=== PATIENT | female | born 1945 | race Caucasian/White ===

== ENCOUNTER → 2016-04-10 | Outpatient (CLI) | payer BC, OTHER ==
[~2016-04-10] MED LIST: ADVIN25/60 INH; ALBU18002 INH; ASPEC81 PO; BUPR100T8 PO; BUPRTAB51 PO; CALC500C70 PO; CEPH500C PO; DIPH1TAB PO; LVNIS30 SQ; NAPR1TAB9 PO; OXYC-57 PO; PRT/20 PO; WARF2TAB PO
== END | disposition home or self-care (01) ==
LOC: C.RDSM 15:38
PROVIDERS: ATTEND Physical Medicine & Rehabilitation Sports Medicine
DX: Z01.818 Encounter for other preprocedural examination (principal); M79.605 Pain in left leg

== ENCOUNTER 2016-05-13 07:30 | Inpatient (IN) | payer BC, OTHER ==
[2016-04-10 15:09] VITALS: BMI 25.0
--- NOTE | 2016-04-10 15:52 | PAT Medication Instructions ---
Service Date Apr 10, 2016. Current Home Medication List Albuterol Sulfate (Proair Respiclick), 2 PUFF INH Q4 PRN for SOB/Wheezing Aspirin Enteric Coated (Ecotrin Or Generic *), 81 MG PO HS Bupropion (Wellbutrin Sr), Unknown Dose PO QAM Calcium/Vitamin D (Os-Ricardo 500 Plus D), 1 TAB PO QAM Diphenhydramine Hcl (Benadryl Allergy), 25 MG PO HS Fluticasone Prop/Salmeterol (Advair Diskus 250/50 60 Dose), 1 PUFF INH QAM Naproxen (Aleve), 220 MG PO Q12 PRN for Pain Pantoprazole (Protonix), 20 MG PO QAM Medication Instructions For Your Scheduled Surgery - Hold the following medications 3 days prior to surgery per surgeon's instructions: Aspirin Enteric Coated (Ecotrin Or Generic *), 81 MG PO HS - Hold the following medications 5-7 days prior to surgery per surgeon's instructions: Naproxen (Aleve), 220 MG PO Q12 PRN for Pain - Hold the following medications the morning of surgery: Calcium/Vitamin D (Os-Ricardo 500 Plus D), 1 TAB PO QAM - Take the following medications the morning of surgery with a sip of water OTHERWISE NOTHING TO EAT OR DRINK AFTER MIDNIGHT: Pantoprazole (Protonix), 20 MG PO QAM Fluticasone Prop/Salmeterol (Advair Diskus 250/50 60 Dose), 1 PUFF INH QAM Bupropion (Wellbutrin Sr), Unknown Dose PO QAM Albuterol Sulfate (Proair Respiclick), 2 PUFF INH Q4 PRN for SOB/Wheezing (use if needed; BRING TO HOSPITAL) - Take the following medications as scheduled the night before surgery: Fluticasone Prop/Salmeterol (Advair Diskus 250/50 60 Dose), 1 PUFF INH QAM Diphenhydramine Hcl (Benadryl Allergy), 25 MG PO HS Albuterol Sulfate (Proair Respiclick), 2 PUFF INH Q4 PRN for SOB/Wheezing If you have any questions please call us at [phone] (Bonnie Bravo PA-C ) or [phone] or [phone]
[2016-04-10 16:27] LABS: BASO % 0.5 %; BASO ABS # 0.04 K/uL (0-0.2); COMPLETE YES; EOS % 4.7 %; IG% 0.1 %; LYMPH % 32.7 %; LYMPH ABS # 2.76 K/uL (1.2-3.4); MEAN CELL VOLUME 89.2 fL (80-100); MEAN CORPUSCULAR HEMOGLOBIN 31.1 pg (25-34); MEAN CORPUSCULAR HGB CONC 34.9 g/dl (32-36); MEAN PLATELET VOLUME 10.1 fL (7.4-10.4); MONO % 6.4 %; NEUT % 55.6 %; PLATELET COUNT 342 K/uL (130-400); RED BLOOD COUNT 4.37 M/uL (4.2-5.4); WHITE BLOOD COUNT 8.45 K/uL (4.8-10.8)
[2016-04-10 16:41] LABS: PARTIAL THROMBOPLASTIN RATIO 0.9; PROTHROMBIN TIME (PATIENT) 11.2 SECONDS (9.0-12.0)
[2016-04-10 16:48] LABS: CALCIUM 9.2 mg/dl (8.5-10.1); POTASSIUM 4.4 mmol/L (3.5-5.1)
[2016-04-10 16:50] LABS: ALB/GLOB RATIO 1.2 (0.9-2)
--- NOTE | 2016-04-11 09:26 | HISTORY & PHYSICAL EXAMINATION ---
DATE OF ADMISSION: 05/13/2016 CHIEF COMPLAINT: Bilateral knee pain, left greater than right. HISTORY OF PRESENT ILLNESS: This 70-year-old female who presents to the clinic today for preoperative history and physical examination. The patient has a longstanding history of bilateral knee pain with the left being greater than the right. The patient has failed conservative treatment with the use of steroid injections, physical therapy and viscosupplementation. The patient recently had visco in both knees and states that she has not had any alleviation of her pain at all. The patient complains of increasing pain ascending stairs, weaknesses with weightbearing and ambulation and intermittent burning in her calves. Otherwise, she denies chest pain, shortness of breath, fever, chills, sweats, nausea, vomiting, diarrhea, numbness or tingling in either lower extremity. PAST SURGICAL HISTORY: Shave biopsy of skin, mammogram, colonoscopy, cardiac ablation, section, tonsillectomy/adenoidectomy. PAST MEDICAL HISTORY: Asthma, depression, gastroesophageal reflux, varicose veins, osteopenia, supraventricular tachycardia and urinary incontinence. FAMILY HISTORY: Mother congestive heart failure and ovarian cancer. Father myocardial infarction, hypertension, hyperlipidemia. Brother myocardial infarction. ALLERGIES: THE PATIENT HAS MEDICATION ALLERGIES TO PENICILLIN (ITCHING) AND NONSTERILE ANTI-INFLAMMATORIES (STOMACH UPSET). CURRENT MEDICATIONS: Advair Diskus 250 mcg-50 mcg 1 puff twice daily as needed, albuterol CFC free 90 mcg inhaler 2 puffs 4 times daily as needed for wheezing, Aleve 220 mg tablets every 8 hours as needed, aspirin 81 mg enteric coated tablet 1 tab daily, Benadryl allergies and cold oral tablet 1 tablet at bedtime, calcium 600 plus D 1 tab twice daily, naproxen 500 mg oral tablet 1 tab every 12 hours as needed for pain, Protonix 40 mg oral delayed release tablet 1 tablet each morning and Wellbutrin-XL 150 mg extended release tablet 1 tab daily. SOCIAL HISTORY: The patient states she was a 35-40 year 1 pack per day smoker but quit smoking in 2010. She states she consumes approximately 2 alcoholic beverages per day, but denies any illicit drug use. PHYSICAL EXAMINATION: SKIN: The patient's skin is normal in appearance. No skin lesions or discharge. EYES: Pupils are equal and reactive to light and accommodation. Extraocular movements are intact. EARS: Canals clear of cerumen. Tympanic membranes are intact bilaterally with no bulging or effusion. NOSE: Turbinates pink and boggy in appearance with no appreciable rhinorrhea. THROAT: Posterior oropharynx clear without evidence of edema, erythema or exudate. CARDIOVASCULAR EXAMINATION: The patient has a regular rate and rhythm with no murmurs or gallops appreciated. LUNGS: Auscultation of lung major reveals clear breath sounds throughout with no wheezing, rales or rhonchi. ABDOMEN: Nonobese, nondistended, nontender with normoactive bowel sounds. EXTREMITIES: Left knee -- The patient is able to extend to 40 degrees and flex to 128 degrees. She has moderate crepitation with active and passive range of motion of the left knee joint. The patient experiences medial and lateral joint line tenderness upon palpation with the knee placed in a flexed position. She also has an obvious varus deformity of the left lower extremity at the knee joint. Left patella is nonmobile due to arthritic changes to the patellofemoral joint. Otherwise, there is no edema, erythema, ecchymosis, warmth or palpable deformity, no varus or valgus laxity, negative anterior drawer drawer sign, negative Leo test. The patient's left calf is soft and supple, nontender to palpation. She experienced no referred knee pain with dorsi or plantarflexion of the left foot actively or passively against resistance. The patient is neurovascularly intact in the left lower extremity. Peripheral pulses are palpable. Capillary refill is brisk. All lower extremities are normal in appearance with appropriate range of motion and strength. NEUROLOGICAL EXAMINATION: Cranial nerves II-XII are intact. No motor or sensory deficit noted. PSYCHOLOGICAL AND GENERAL EXAMINATION: The patient is alert and oriented x3. Appropriate grooming and hygiene. DIAGNOSIS: Left knee degenerative joint disease. PROCEDURE: Left total knee arthroplasty. X-RAY RESULTS: X-rays of the left knee show severe medial compartment joint space narrowing with bone on bone arthritic changes. PLAN: The patient is scheduled to undergo this procedure with Dr. Josué Rubin at [facility] on 05/06/2016. Risks and complications of surgery such as infection, bleeding, pain, scarring, nerve and blood vessel damage, weakness, wound problems, stiffness, incomplete relief of symptoms, heart attack, stroke, , hardware failure, loosening, wear, fracture, blood clots, embolism were explained to the patient. She understands and agrees. Consent to perform the procedure was obtained. We will also obtain a preoperative medical clearance from her PCP, Dr. Rivera, along with EKG, chest x-ray, CBC with diff, CMP, PT/INR, PTT, blood type and screen. The patient states she will obtain all the necessary tests prior to her preoperative anesthesia clearance examination this afternoon. The patient states she does have a walker and a cane at home that she will bring with her on the day of surgery. The patient states she has contacted her insurance company about the possibility of home care, but the relayed the information to her that states she does not qualify for home health care. She states that most likely she will do outpatient physical therapy after the procedure in our clinic; however, she was getting information about [facility] home care services and [facility] home care services and states she will contact them and her insurance company to see if these may be a possibility. The patient was advised that she will be provided with prescription for PT/OT, and INR checks for 6 weeks postoperatively upon discharge from the hospital. She will also be given a prescription for Coumadin and narcotic medication for postoperative pain control. The patient is scheduled follow-up examination with Dr. Rubin's set for 05/19/2016. The patient verbalized understanding of all information provided today and thanked us for the care she has received in our clinic and states that if she has any other questions or concerns that should arise prior to her scheduled surgical date she will contact the clinic accordingly. I attest to the content of the Intraoperative Record and any orders documented therein. Any exceptions are noted below. OLEG
[~2016-05-13] VITALS: Ht 157.5 cm; Wt 62.9 kg
[2016-05-13] VITALS (8 sets, daily range): BP systolic 109–144; BP diastolic 66–81; PULSE 80–95; TEMP 36.4–36.8; O2SAT 92–96; Ht 157.5 cm; Wt 62.9 kg
[2016-05-13] MEDS: TRANEXAMIC ACID INJ 1,000 MG in SODIUM CHLORIDE 0.9% 100ML 100 ML IV SCH ×2 (06:30→09:41)
[~2016-05-13 07:30] MED LIST changes: +ACETAMINOPHEN 500 MG TAB PO SCH; +BUPIVACAINE 0.25% 30 ML VIAL ONE; +BUPIVACAINE 0.5 % 5 MG/1 ML PF 10ML VIAL ONE; +BUPIVACAINE LIPOSOME 266 MG, BUPIVACAINE/EPINEPHRINE INJ 50 ML, SODIUM CHLORIDE 0.9% PF... INFIL SCH; -BUPRTAB51 PO; +CEFAZOLIN 1000MG/55 ML D5W 55 ML IV SCH; -CEPH500C PO; +CLONIDINE HCL 0.1 MG/24 HR TRANSDERM SYS TD SCH; +CeleBREX 200 MG CAP PO SCH; +DEXAMETHASONE 4 MG TAB PO SCH; +GABAPENTIN 300 MG CAP PO SCH; +LACTATED RINGER'S 1000ML 1,000 ML IV SCH; +LACTATED RINGER'S 1000ML 500 ML IV ONE; +LACTATED RINGER'S 1000ML IV SCH; -LVNIS30 SQ; -OXYC-57 PO; +OXYCODONE HCL 10 MG TABCR (OXYCONTIN) PO SCH; +TRAMADOL HCL 50 MG TAB PO SCH; -WARF2TAB PO
[2016-05-13] MEDS: CHECK CLONIDINE PATCH PLACEMENT SCH ×4 (08:00→23:26)
[2016-05-13] MEDS ORDERED: ATROPINE SULFATE 0.1 MG/ML 5ML SYR IV PRN (08:15)
[2016-05-13] MEDS ORDERED: EpHEDrine SULFATE INJ 50 MG/ML AMP IV PRN (08:15)
[2016-05-13] MEDS ORDERED: FENTANYL CITRATE INJ 50 MCG/1 ML 2 ML VIAL IV PRN (08:15)
[2016-05-13] MEDS ORDERED: ONDANSETRON INJ 2 MG/ML 2 ML VIAL IV PRN (08:15)
[2016-05-13] MEDS ORDERED: MIDAZOLAM HCL 1 MG/ML 2ML VIAL ONE (09:12)
[2016-05-13] MEDS ORDERED: NURSING VERBAL MED ORDER STA (09:38)
--- NOTE | 2016-05-13 09:44 | History and Physical ---
History & Physical Date May 13, 2016. Chief Complaint L KNEE PAIN History of Present Illness The patient is a 70 year old female with complaints of L KNEE PAIN Past Medical/Surgical History ASTHMA, DEPRESSION, REFLUX, VARICOSE VEINS, OSTEOPENIA, SVT, URINE INCONTINENCE Additional History Hepatic Disease: No Endocrine Disorder: No Kidney Disease: No Hypertension: No Heart Disease: No Bleeding Tendencies: No Infectious Diseases: No Other: SURGERIES, SKIN BX, MAMMOGRAM, COLONOSCOPY, CARDIAC ABLATION, C SECTION, TONSILS Allergies Coded Allergies: Penicillins (Verified Allergy, Mild, ITCHING, 05/13/16) NSAIDs (Verified Adverse Reaction, Unknown, GI UPSET WITH PROLONGED USE, ) Home Medications Scheduled Aspirin Enteric Coated (Ecotrin Or Generic *), 81 MG PO HS Bupropion (Wellbutrin Sr), Unknown Dose PO QAM Calcium/Vitamin D (Os-Ricardo 500 Plus D), 1 TAB PO QAM Diphenhydramine Hcl (Benadryl Allergy), 25 MG PO HS Fluticasone Prop/Salmeterol (Advair Diskus 250/50 60 Dose), 1 PUFF INH QAM Pantoprazole (Protonix), 20 MG PO QAM Scheduled PRN Albuterol Sulfate (Proair Respiclick), 2 PUFF INH Q4 PRN for SOB/Wheezing Naproxen (Aleve), 220 MG PO Q12 PRN for Pain Physical Examination Skin: warm/dry, no rash Eyes: normal inspection ENT: pharynx normal Head: normocephalic Neck: supple, trachea midline Respiratory/Chest: lungs clear, + pertinent finding (DISTANT) Cardiovascular: regular rate, rhythm, no murmur Abdomen / GI: normal bowel sounds, non tender Extremities: + pertinent finding (NO EDEMA, RANGE 0/5/110, NO EFFUSION, DP1+, MOTOR 5/5, DNVI, MEDEIAL JOINT TENDER) Neurologic/Psych: no motor/sensory deficits Addiitonal Comments: SOCIAL DRINKER 2/DAY, HISTORY OF SMOKIING Diagnosis L KNEE DJD ASA Classification: ASA Class II Plan of Treatment LEFT TKA, PLEASE SEE PRIOR H AND P FOR FURTHER DETAILS
[2016-05-13] MEDS ORDERED: BUPIVACAINE/EPINEPHRINE 0.25% 1:200,000 30 ML VIAL ONE (09:50)
[2016-05-13] MEDS ORDERED: BUPIVACAINE LIPOSOME 1/3% 266 MG/20 ML VIAL INFIL ONE (09:51)
[2016-05-13] MEDS ORDERED: BACITRACIN 50000 UNIT VIAL ONE (09:51)
[2016-05-13] MEDS ORDERED: SODIUM CHLORIDE 0.9% PF 50 ML VIAL ONE (09:51)
[2016-05-13] MEDS ORDERED: PROPOFOL IV EMULSION 10 MG/ML 20 ML VIAL IV ONE ×2 (10:48→11:02)
[2016-05-13] MEDS ORDERED: FENTANYL CITRATE INJ 50 MCG/1 ML 2 ML VIAL ONE (12:11)
--- NOTE | 2016-05-13 12:45 | [facility] Post Operative Brief Note ---
Immediate Operative Summary Operative Date May 13, 2016. Pre-Operative Diagnosis Left Knee Degenerative Joint Disease Post-Operative Diagnosis Left Knee Degenerative Joint Disease Procedure(s) Performed Left Total Knee Arthroplasty Surgeon Dr. Josué Rubin Library Media Assistant Surgeon(s) arlyn Sanchez, ms3 Estimated Blood Loss 25ML Findings patella and medial OA Specimens A. Left knee bone and tissue Drains 0 Anesthesia spinal with sedation and adductor block Complication(s) None Disposition Recovery Room / PACU
[2016-05-13] MEDS ORDERED: HYDROCODONE/ACETAMOPHEN 5/325MG TAB PO PRN (13:00)
[2016-05-13] MEDS ORDERED: MoRPHine SULFATE 2 MG/ML CARP IV PRN (13:00)
[2016-05-13] MEDS ORDERED: METOCLOPRAMIDE HCL INJ 5 MG/ML 2 ML VIAL IV PRN (13:00)
--- NOTE | 2016-05-13 13:08 | Medical Student: [facility] ---
Immediate Operative Summary Operative Date May 13, 2016. Pre-Operative Diagnosis Left knee osteoarthritis Post-Operative Diagnosis Left knee osteoarthritis Procedure(s) Performed Left total knee arthroplasty Surgeon Dr. Rubin Accredited Legal Secretary Surgeon(s) Dr. Bean Estimated Blood Loss 20cc Findings Degenerative joint disease of left knee, more prominent on medial aspect of knee Specimens None Complication(s) None Disposition Recovery Room / PACU
--- NOTE | 2016-05-13 13:08 | [facility] Post Operative Brief Note ---
Immediate Operative Summary Operative Date May 13, 2016. Pre-Operative Diagnosis Left Knee Degenerative Joint Disease Post-Operative Diagnosis Left Knee Degenerative Joint Disease Procedure(s) Performed Left Total Knee Arthroplasty Surgeon Dr. Josué Rubin Building Carpenter Helper Surgeon(s) arlyn Sanchez, ms3 Estimated Blood Loss 25ML Specimens A. Left knee bone and tissue Complication(s) None Disposition PCU
--- NOTE | 2016-05-13 13:47 | DIAGNOSTIC IMAGING REPORT ---
TWO VIEWS LEFT KNEE CLINICAL HISTORY: Postoperative examination. FINDINGS: AP and crosstable lateral portable views of the left knee are obtained. A left knee arthroplasty is in near anatomic alignment. There has been undersurface remodeling of the patella. No acute fracture is seen. There are expected postoperative changes around the knee including skin clips, soft tissue edema, and subcutaneous gas. IMPRESSION: Expected postoperative changes status post left knee arthroplasty. No acute fracture is seen. Electronically signed by: Benjamin Hendricks M.D. 05/13/2016 1:45 PM Dictated Date/Time: 05/13/2016 1:45 PM
--- NOTE | 2016-05-13 13:52 | Anesthesiology Progress Note ---
Anesthesia Post Op Note Date & Time May 13, 2016 at 13:52 Vital Signs Pain Intensity: 0 Vital Signs Past 12 Hours Date Time Temp Pulse Resp B/P Pulse Ox O2 Delivery O2 Flow Rate FiO2 05/13/16 13:45 95 18 114/63 97 Nasal Cannula 3 05/13/16 13:35 92 16 126/68 97 Nasal Cannula 3 05/13/16 13:25 37.0 94 16 122/68 96 Nasal Cannula 3 05/13/16 13:15 92 16 121/68 98 Nasal Cannula 3 05/13/16 13:05 91 16 126/69 98 Mask 10 05/13/16 12:56 37.2 90 16 123/69 98 Mask 10 05/13/16 08:07 36.7 87 20 124/81 95 Room Air Notes Mental Status: alert / awake / arousable, participated in evaluation Pt Amnestic to Procedure: Yes Nausea / Vomiting: adequately controlled Pain: adequately controlled Airway Patency, RR, SpO2: stable & adequate BP & HR: stable & adequate Hydration State: stable & adequate Neuraxial Anesthesia: was administered, sensory block is resolving Anesthetic Complications: no major complications apparent
--- NOTE | 2016-05-13 14:32 | OPERATIVE REPORT ---
DATE OF OPERATION: 05/13/2016 PREOPERATIVE DIAGNOSIS: Left knee osteoarthritis, medial compartment with varus deformity. POSTOPERATIVE DIAGNOSIS: Same. PROCEDURE: Cemented left total knee arthroplasty. SURGEON: Dr. Rubin. PROCESSOR GRAIN: Celso Nunn MD, fellow. No resident or PA available. ANESTHESIA: Spinal with sedation and adductor canal block. SECOND PROCESSOR GRAIN: Benjamin Encarnacion, [employer] third year medical student. BRIEF HISTORY: The patient is a 70-year-old female with severe arthritis of her left knee. She has exhausted nonsurgical methods of management without success and after discussion of appropriate treatment alternatives, risks, and benefits, has elected to proceed with operative intervention. She has had a preoperative medical evaluation. PROCEDURE IN DETAIL: Informed consent was obtained. The patient was identified as Jeana Boss. She identified the operative site as the left knee. I marked it with my initials. A preop surgical timeout was performed. A preop dose of IV antibiotics was given. She was taken to the operating room, positioned supine on the operating room table. No Faria catheter was inserted. A tourniquet was applied to the left thigh. The left leg was examined and prepped and draped in usual sterile fashion from the tourniquet to the toes. A padded bump was placed under the knee for positioning. The exam showed range 0/3/115, the varus deformity, no effusion. DVT prophylaxis intraoperatively with foot pumps, postoperatively with Coumadin and early mobility. The limb was exsanguinated with the Esmarch, tourniquet inflated to 225 mmHg. A 20 cm midline longitudinal incision was made, followed by a medial parapatellar arthrotomy. Soft tissue on the anterior aspect of the distal femur was resected along with the retropatellar fat pad. An extensile medial release was performed. The cruciates and menisci were resected, synovial reflection in the lateral gutter was released. There were grade 3 and 4 changes of the patella with marginal osteophytes which were debrided. There were bone on bone changes medial compartment with large osteophytes which were removed. The lateral compartment was relatively normal including the meniscus. The medial meniscus was deficient. The knee was subluxated. An intramedullary alignment vadim was inserted into the tibia and aligned to take a 0 degree slope, 10 mm thick cut off of the lateral side corresponding to a 2-4 mm cut medially. The extramedullary alignment vadim was utilized to confirm appropriate slope and alignment and this cut was then made and the tibia was sized to a 2.5. Marginal osteophytes were removed. A submersible pilot hole was drilled in the distal femur. The intramedullary alignment guide was inserted and set to resect 12 mm of bone, 7 degrees of valgus left knee. This was pinned into place and the cut was made, the extension gap was a symmetric 10 with full extension and neutral alignment. Whitesides line and the transepicondylar axis were marked. Distal femoral sizing block was applied and sized to a 2.5 and the appropriate external rotation drill holes were made. The block was pinned into place and the appropriate cuts were made, protecting the collateral ligaments. The flexion gap was a symmetric 10 with a millimeter of laxity lateral. The posterior compartment was inspected and posteromedial osteophytes were removed. The box cutting guide was applied and aligned lateral and the box cut was made. The size 2.5 femur was applied, followed by the 2.5 tibia. The keel was drilled and punched. A size 10 poly was inserted. The knee was stable in full extension. There was 1+ laxity laterally in mid position and the knee was stable in 90 degrees flexion. The tibial tray was aligned lateral, as was the femoral component. The patellar button was measured to be 20 mm in thickness and the guide was set to preserve 13 mm of bone. The patellar clamp was applied and the cut was made with the residual patellar thickness of 12. The 32 mm 3-peg oval dome patella was selected, medialized and distalized, appropriately aligned and the lug holes were drilled. Patellar tracking was fine with the no hands technique. The canals were plugged. Exparel was injected into the back of the knee. Pulsatile lavage was used to maintain moisture of the soft tissues throughout the procedure and the bony surfaces were meticulously prepared. Two bags of Simplex P cement were mixed. No antibiotics. While in a doughy state, the femur, tibia and patella were cemented into place and held in extension with a trial spacer and a patellar clamp until the cement had hardened. At this time, the tourniquet was let down after 90 minutes of inflation. Meticulous hemostasis was performed. There was minimal bleeding. Composite patellar thickness was 21 mm. The remainder of the Exparel was injected into the soft tissues, taking care to avoid the neurovascular structures. Back of the knee was inspected for cement and some was removed medially. Stability was again assessed and found to be satisfactory as mentioned above and the final polyethylene was inserted. The back of the knee was irrigated. The extensor mechanism was then closed with #2 FiberWire above the equator of the patella, running and interrupted #1 Vicryl below. The skin was closed in layers with 0 and 2-0 Vicryl and conor on the skin. A soft sterile dressing of Xeroform, 4 x 4's, ABD and a full length Esdras wrap. The patient was sent to the floor with a knee immobilizer. Cordova assisted flexion with the extensor mechanism closed was approximately 115 degrees. The patient was awakened from anesthesia without difficulty, taken to recovery in stable condition. There were no complications. The resected bone was sent for specimen. Counts were correct at the end of case. Blood loss was approximately 20 mL. At the conclusion of the operation, I spoke to patient's friends and informed them of my findings. Detailed postoperative instructions were given. She will be rehabilitated according to the total knee protocol and will be placed on Coumadin. Tranexamic acid was given preoperatively and another dose will be given postoperatively. Components inserted were the J\T\J PFC Sigma rotating platform knee, size 2.5 mobile bearing keeled tibial tray, a 2.5 mm posterior stabilized left femoral component, a 32 mm 3-peg oval dome patella and a size 2.5 10 mm thick rotating platform polyethylene insert. I attest to the content of the Intraoperative Record and any orders documented therein. Any exceptio ns are noted below.
[2016-05-13] MEDS: CEFAZOLIN IV 2,000 MG in DEXTROSE 5% 50ML 50 ML IV SCH (17:01)
[2016-05-13] MEDS: SODIUM CHLORIDE 0.9% 1000ML 1,000 ML IV SCH (17:04)
--- NOTE | 2016-05-13 17:08 | Medical Consult ---
Consultation Date of Consultation: May 13, 2016. Attending Physician: Josué Rubin M.D. Reason for Consultation: post-op medical management History of Present Illness Ms. Boss is a 70-yo female who is admitted for L TKA done on 05/13/16. She has a pmh of osteoarthritis, b/l rotator cuff tears, asthma (dx with PFTs outpt) , SVT in 2011 s/p successful ablation and follows with Dr. Ratliff, Depression, and h/o smoking. She c/o of left knee pain, otherwise, no chest pain, no sob, no abd pain/n/v/c/d, no urinary symptoms. Past Medical/Surgical History Pmh: rotator cuff tears b/l, b/l knee osteoarthritis s/p L TKA, asthma, SVT s/p ablation, depression, h/oruptured ovarian cyst PSh: 2 C-sections FHx: -Father: DC at 63 - Brother heart disease, DC at 44 Social History - h/o heavy smoking, quit in 2011 - daily whiskey drinker, 3 glasses daily, last drink 05/11, does not report withdrawals in the past - lives with 5 cats - twice divorce, estranged daughters Smoking Status: Former Smoker Allergies Coded Allergies: Penicillins (Verified Allergy, Mild, ITCHING, 05/13/16) NSAIDs (Verified Adverse Reaction, Unknown, GI UPSET WITH PROLONGED USE, ) Home Medications Home Meds and Scripts Medications Dose Route/Sig Max Daily Dose Days Date Category Aleve (Naproxen) 220 Mg Tab 220 Mg PO Q12 PRN 04/10/16 Reported Advair Diskus 250/50 60 Dose (Fluticasone Prop/Salmeterol) 1 Ea Aerp 1 Puff INH QAM 04/10/16 Reported Proair Respiclick (Albuterol Sulfate) 108 Mcg/Act Aer 2 Puff INH Q4 PRN 04/10/16 Reported Benadryl Allergy (Diphenhydramine Hcl) 25 Mg Tab 25 Mg PO HS 04/10/16 Reported Os-Ricardo 500 Plus D (Calcium/Vitamin D) Tab 1 Tab PO QAM 04/10/16 Reported Protonix (Pantoprazole Sodium) 20 Mg Tab 20 Mg PO QAM 04/10/16 Reported Wellbutrin Sr (Bupropion HCl) Unknown Strength Ertab Unknown Dose PO QAM 04/12/11 Reported Ecotrin Or Generic * (Aspirin) 81 Mg Ectab 81 Mg PO HS 08/22/06 Reported Current Inpatient Medications Current Inpatient Medications Medications (Trade) Dose Ordered Sig/Zina Route Start Time Stop Time Status Last Admin Dose Admin Cefazolin Sodium (Ancef 1000mg/55 ml D5W) 55 ml @ 100 mls/hr PREOP IV 05/13/16 06:00 05/13/16 18:00 05/13/16 10:16 100 MLS/HR Acetaminophen (Tylenol Tab) 1,000 mg PREOP PO 05/13/16 06:00 05/13/16 18:00 05/13/16 08:23 1,000 MG Celecoxib (CeleBREX CAP) 200 mg PREOP PO 05/13/16 06:00 05/13/16 18:00 05/13/16 08:22 200 MG Dexamethasone 8 mg 8 mg PREOP PO 05/13/16 06:00 05/13/16 18:00 05/13/16 08:22 8 MG Bupivacaine Liposome/ Bupivacaine HCl/ Epinephrine Bitart/Sodium Chloride/Syringe (Exparel/ BUPIVACAINE/ EPINEPHRINE 0.25% Inj/Sodium Chloride 0.9% Pf Inj/Syringe) 100 ml @ 0 mls/hr 06 INFIL 05/13/16 06:00 05/13/16 18:00 05/13/16 11:55 100 MLS/HR Gabapentin (Neurontin Cap) 300 mg PREOP PO 05/13/16 06:00 05/13/16 18:00 05/13/16 08:22 300 MG Oxycodone HCl (Oxycontin Tab) 10 mg PREOP PO 05/13/16 06:00 05/13/16 18:00 05/13/16 08:22 10 MG Clonidine HCl ([id number] 0.1mg/24hr Patch) 1 patch PREOP TD 05/13/16 06:00 05/13/16 18:00 05/13/16 08:29 1 PATCH Miscellaneous 1 ea 1 ea Q72H N/A 05/16/16 06:00 05/16/16 06:01 Tranexamic Acid/ Sodium Chloride (Cyklokapron Inj/ Nss 100ml) 110 ml @ 660 mls/hr TODAY@06,0630 IV 05/13/16 06:00 05/13/16 18:00 05/13/16 09:41 660 MLS/HR Tramadol HCl (Ultram Tab) 50 mg PREOP PO 05/13/16 06:00 05/13/16 18:00 05/13/16 08:22 50 MG Miscellaneous Information 1 ea 1 ea QS N/A 05/13/16 00:00 06/12/16 00:00 Sodium Chloride (Nss 1000ml) 1,000 ml @ 100 mls/hr Q10H IV 05/13/16 12:58 05/14/16 12:57 Acetaminophen/ Hydrocodone Bitart ([place] 5/325 Tab) 1 TABLET FOR PAIN RATING... Q4H PRN PO 05/13/16 13:00 05/27/16 12:59 Morphine Sulfate (MoRPHine SULFATE INJ) FOR PAIN, 1-2MG 1MG FOR P... Q4 PRN IV 05/13/16 13:00 05/27/16 12:59 Senna (Senokot Tab) 17.2 mg HS PO 05/13/16 21:00 06/12/16 20:59 Docusate Sodium (coLACE CAP) 100 mg BID PO 05/13/16 21:00 06/12/16 20:59 Ondansetron HCl (Zofran Inj) 4 mg Q6H PRN IV 05/13/16 13:00 06/12/16 12:59 Metoclopramide HCl (Reglan Inj) 10 mg Q6H PRN IV 05/13/16 13:00 06/12/16 12:59 Pantoprazole Sodium (Protonix Tab) 40 mg QAM PO 05/14/16 09:00 06/13/16 08:59 Tramadol HCl 1 tablet for pain rating... Q4H PRN PO 05/13/16 13:00 06/12/16 12:59 Tranexamic Acid/ Sodium Chloride (Cyklokapron Inj/ Nss 100ml) 110 ml @ 660 mls/hr TODAY@2000 ONCE IV 05/13/16 20:00 05/13/16 20:09 Dexamethasone 8 mg 8 mg TODAY@0730 PO 05/14/16 07:30 05/14/16 07:31 Cefazolin Sodium/ Dextrose (Ancef Iv/D5 50ml) 60 ml @ 100 mls/hr Q8H IV 05/13/16 18:00 05/14/16 02:35 Celecoxib (CeleBREX CAP) 200 mg BID PO 05/13/16 21:00 06/12/16 20:59 Review of Systems ROS as per HPI. Rest of ROS negative. Physical Exam Date Time Temp Pulse Resp B/P Pulse Ox O2 Delivery O2 Flow Rate FiO2 05/13/16 15:30 36.7 86 16 144/77 96 Nasal Cannula 2.0 05/13/16 15:08 36.5 85 16 133/80 96 Nasal Cannula 2.0 05/13/16 14:30 95 Nasal Cannula 2.0 05/13/16 14:30 36.8 95 14 142/72 95 Nasal Cannula 2.0 05/13/16 14:15 94 18 121/70 97 Nasal Cannula 3 05/13/16 14:05 36.4 95 18 120/70 97 Nasal Cannula 3 05/13/16 13:55 96 18 122/70 97 Nasal Cannula 3 05/13/16 13:45 95 18 114/63 97 Nasal Cannula 3 05/13/16 13:35 92 16 126/68 97 Nasal Cannula 3 05/13/16 13:25 37.0 94 16 122/68 96 Nasal Cannula 3 05/13/16 13:15 92 16 121/68 98 Nasal Cannula 3 05/13/16 13:05 91 16 126/69 98 Mask 10 05/13/16 12:56 37.2 90 16 123/69 98 Mask 10 05/13/16 08:07 36.7 87 20 124/81 95 Room Air NAD, AOx3 anicteric sclerae, EOMI, PERRL S1 S2 RRR, no murmurs appreciated, no carotid bruit CTAB no w/r/r abd soft, nt/nd +BS, no cva tenderness, no organomegaly palpated, no suprapubic tend no LE edema, L toe cap refill <2 sec cn2-12 grossly intact without facial drooping and no focal deficits Assessment & Plan 1. L knee DJD - POD #0 s/p L TKA - pain control - bowel regimen - celecoxib as ordered - counselled on naproxen use at home. pt verbalized understanding 2. Depression - cont wellbutrin 350mg daily 3. SVT - s/p ablation - no further episodes since 2012 4. Ashma - stable 5. Alcohol use - no e/o withdrawal symptoms - will monitor for s/s dvt ppx: will defer to ortho post-op. gi ppx with ppi
[2016-05-13] MEDS ORDERED: ALBUTEROL HFA 8 GM INHALER INH PRN (17:45)
[2016-05-13] MEDS ORDERED: ACETAMINOPHEN 500 MG TAB PO PRN (18:00)
[2016-05-13] MEDS: ONDANSETRON INJ 2 MG/ML 2 ML VIAL IV PRN (18:16)
[2016-05-13] MEDS ORDERED: BUPRTAB51 PO (19:01)
[2016-05-13] MEDS ORDERED: WARFARIN SOD 5 MG TAB PO ONE (19:30)
[2016-05-13] MEDS ORDERED: TRANEXAMIC ACID INJ 1,000 MG in SODIUM CHLORIDE 0.9% 100ML 100 ML IV ONE (20:00)
[2016-05-13] MEDS: DOCUSATE SODIUM 100 MG CAP PO SCH (20:14)
[2016-05-13] MEDS: CeleBREX 200 MG CAP PO SCH (20:14)
[2016-05-13] MEDS: SENNA 8.6 MG TAB PO SCH (20:15)
[2016-05-13] MEDS: ASPIRIN 81 MG ECTAB PO SCH (20:15)
[2016-05-13] MEDS ORDERED: BuPROPion SR 150 MG TABCR PO SCH (21:00)
--- NOTE | 2016-05-13 22:11 | PROGRESS NOTE ---
DATE: 05/13/2016 SUBJECTIVE: She is resting comfortably in bed. Pain is well controlled. No problems reported. She is afebrile. Her vital signs are stable. She has a 1+ dorsalis pedis pulse with normal sensation. She can flex and extend her ankle and toes with normal strength. Her dressing is clean and dry. IMPRESSION: Left knee replacement. PLAN: She is doing very well. Continue routine postop orthopedic care, anticoagulation with Coumadin starting tonight, routine postoperative antibiotics, pain medication regimen discussed. DATA: X-rays of the left knee, AP and lateral views obtained and reviewed today, postoperatively show no evidence of complication or fracture. There is good positioning of the implants. No dislocation or fracture.
[2016-05-14] MEDS: SODIUM CHLORIDE 0.9% 1000ML 1,000 ML IV SCH ×2 (00:10→09:08)
[2016-05-14] MEDS: CEFAZOLIN IV 2,000 MG in DEXTROSE 5% 50ML 50 ML IV SCH (01:40)
[2016-05-14] MEDS: TRAMADOL HCL 50 MG TAB PO PRN ×4 (01:45→22:08)
[2016-05-14 03:33] VITALS: BP 99/61; PULSE 69; TEMP 36.5; O2SAT 94
[2016-05-14 05:55] LABS: BASO % 0.1 %; BASO ABS # 0.01 K/uL (0-0.2); COMPLETE YES; EOS % 0.3 %; HEMATOCRIT 32.8 % (37-47); IG% 0.2 %; LYMPH % 16.2 %; MEAN CELL VOLUME 90.9 fL (80-100); MEAN CORPUSCULAR HEMOGLOBIN 30.5 pg (25-34); MEAN CORPUSCULAR HGB CONC 33.5 g/dl (32-36); MEAN PLATELET VOLUME 9.9 fL (7.4-10.4); MONO % 7.4 %; NEUT % 75.8 %; PLATELET COUNT 271 K/uL (130-400); RED BLOOD COUNT 3.61 M/uL (4.2-5.4); WHITE BLOOD COUNT 11.76 K/uL (4.8-10.8)
[2016-05-14 06:41] LABS: ALB/GLOB RATIO 0.9 (0.9-2); BUN/CREATININE RATIO 17.7 (10-20); CALCIUM 8.3 mg/dl (8.5-10.1); CREATININE 0.75 mg/dl (0.60-1.20); POTASSIUM 3.6 mmol/L (3.5-5.1)
[2016-05-14 07:10] VITALS: BP 96/61; PULSE 71; TEMP 36.5; O2SAT 93
[2016-05-14] MEDS ORDERED: DEXAMETHASONE 4 MG TAB PO SCH (07:30)
[2016-05-14] MEDS: ONDANSETRON INJ 2 MG/ML 2 ML VIAL IV PRN (07:35)
[2016-05-14] MEDS: CHECK CLONIDINE PATCH PLACEMENT SCH ×2 (08:00→14:41)
--- NOTE | 2016-05-14 08:54 | Progress Note ---
Orthopedic SOAP Note Subjective Date of Service: May 14, 2016. Post OP Day: 1 Reports: feeling well, Denies: SOB, calf pain, chest pain, complaints, light headedness, nausea / vomiting, pain controlled w PO medications, using DOOR FITTER Objective calves soft nontender, capillary refill less than 2 sec., dressing C/D/I, A&O x3 , toes mobile knee immobilizer in place sitting bedside eating breakfast Date Time Temp Pulse Resp B/P Pulse Ox O2 Delivery O2 Flow Rate FiO2 05/14/16 07:49 Room Air 05/14/16 07:10 36.5 71 16 96/61 93 Room Air 05/14/16 03:33 36.5 69 17 99/61 94 Room Air 05/13/16 23:25 Room Air 05/13/16 22:48 36.4 80 18 109/72 94 Room Air 05/13/16 18:48 36.6 88 18 109/68 92 Room Air 05/13/16 17:42 36.4 85 18 114/71 93 Room Air 05/13/16 16:55 Nasal Cannula 2.0 05/13/16 16:38 36.8 92 18 124/66 96 Nasal Cannula 2.0 05/13/16 15:30 36.7 86 16 144/77 96 Nasal Cannula 2.0 05/13/16 15:08 36.5 85 16 133/80 96 Nasal Cannula 2.0 05/13/16 14:30 95 Nasal Cannula 2.0 05/13/16 14:30 36.8 95 14 142/72 95 Nasal Cannula 2.0 05/13/16 14:15 94 18 121/70 97 Nasal Cannula 3 05/13/16 14:05 36.4 95 18 120/70 97 Nasal Cannula 3 05/13/16 13:55 96 18 122/70 97 Nasal Cannula 3 05/13/16 13:45 95 18 114/63 97 Nasal Cannula 3 05/13/16 13:35 92 16 126/68 97 Nasal Cannula 3 05/13/16 13:25 37.0 94 16 122/68 96 Nasal Cannula 3 05/13/16 13:15 92 16 121/68 98 Nasal Cannula 3 05/13/16 13:05 91 16 126/69 98 Mask 10 05/13/16 12:56 37.2 90 16 123/69 98 Mask 10 Laboratory Results 24 Hours: Test 05/14/16 04:44 05/14/16 05:20 White Blood Count 11.76 K/uL Red Blood Count 3.61 M/uL Hemoglobin 11.0 g/dL Hematocrit 32.8 % Mean Corpuscular Volume 90.9 fL Mean Corpuscular Hemoglobin 30.5 pg Mean Corpuscular Hemoglobin Concent 33.5 g/dl Platelet Count 271 K/uL Mean Platelet Volume 9.9 fL Neutrophils (%) (Auto) 75.8 % Lymphocytes (%) (Auto) 16.2 % Monocytes (%) (Auto) 7.4 % Eosinophils (%) (Auto) 0.3 % Basophils (%) (Auto) 0.1 % Neutrophils # (Auto) 8.92 K/uL Lymphocytes # (Auto) 1.90 K/uL Monocytes # (Auto) 0.87 K/uL Eosinophils # (Auto) 0.04 K/uL Basophils # (Auto) 0.01 K/uL Assessment post op day 1 s/p Left TKA Plan continue post op care pain control with prescribed medications DVT prophylaxis with Coumadin x 6 weeks with target INR 2.0-3.0 WBAT left L.E. with walker PT/OT daily Will change dressing tomorrow AM Ice/elevate Resume diet Requesting DC home tomorrow with home PT Will discuss findings further with Dr. Rubin
[2016-05-14] MEDS ORDERED: LVNIS30 SQ ×2 (09:00→09:27)
[2016-05-14] MEDS ORDERED: BuPROPion XL 300 MG TABCR PO SCH (09:00)
[2016-05-14] MEDS ORDERED: OXYC-57 PO (09:00)
[2016-05-14] MEDS ORDERED: WARF2TAB PO (09:00)
[2016-05-14] MEDS: PANTOprazole SOD 40 MG TAB PO SCH (09:00)
[2016-05-14] MEDS: CeleBREX 200 MG CAP PO SCH ×2 (09:01→22:07)
[2016-05-14] MEDS: DOCUSATE SODIUM 100 MG CAP PO SCH ×2 (09:01→22:07)
--- NOTE | 2016-05-14 09:03 | Discharge Instructions ---
Discharge Instructions Admission Reason for Admission: Left Knee Degenerative Joint Disease Discharge Discharge Diagnosis / Problem: s/p Left total knee arthroplasty Discharge Goals Goal(s): Decrease discomfort, Improve function, Increase independence Activity Recommendations Activity Limitations: as noted below Lifting Limitations: none Exercise/Sports Limitations: none May Resume Sexual Activity: after follow-up appointment Shower/Bathe: keep incision dry Driving or Machine Use: until cleared by Dr. Rubin Weightbearing Status: Left weightbearing (as tolerated) . Instructions / Follow-Up Instructions / Follow-Up New Medicine: * You will likely be taking one or more of these medications: 1. Lovenox - You will be on Lovenox injections x 4 weeks after surgery to prevent blood clots 2. Oxycontin - Take one every 12 hours. 3. Percocet - Take, as directed, when you need it, every four to six hours to control your pain. 4. Colace & Senokot - Take to prevent constipation which can be caused by narcotics. These can be bought [id number] at the pharmacy * The most common side effects of pain medicine and iron are nausea and constipation. If nausea or constipation is too much of a problem or if you have any questions about your new medicines or doses, call [facility] at . We will try to help you manage these issues. VERY IMPORTANT TO READ AND REVIEW" Physical Therapy: * Do your physical therapy at home. These are the exercises you learned while in the hospital (quad sets, leg raises, calf pumps, gluteal squeezes, knee bending, and heel props.) You should do these exercises 3-4 times per day. * You will either go to inpatient rehab ([facility]), home with Home Therapy and nursing or home with outpatient rehab. You should do rehab with the therapist 2-3 times per week. You should do therapy on your own daily. * You may bear full weight on your leg with crutches or walker unless otherwise advised. Home Exercise: * You were shown a series of exercises (heel props, heel slides, etc.) in the hospital. Do these exercises three to four times each day including the exercises you were shown in physical therapy. Walking: * You may be up for short periods of time. Standing and walking for 1-2 hours at a time is usually okay. You should not stand or walk for excessive periods of time as this may cause increased pain and swelling. SELF CARE INSTRUCTIONS AFTER TOTAL KNEE REPLACEMENT A. You may need to continue a physical therapy program after discharge from the hospital. There are several options available to you. Your doctor will assist you in selecting the best one for you. 1. An out-patient facility 2 to 3 times a week for therapy or home therapy. 2. Continue working on all exercises taught to you in the hospital. Your goals should be to increase bending of your knee to 90 degrees and beyond and to fully straighten your knee. B. Your therapist will notify you when you are able to progress from a walker to a cane. C. Wear TEDS as much as possible.~ They may be removed at night for laundering. D. Do not place a pillow behind your knee when resting. A pillow at your ankle is okay. E. Ice your knee 15-20 minutes every 2-3 hours and elevate it above the level of your heart. F. You may shower on the fourth day after surgery using regular soap and water. Do not submerge until the wound is completely healed (approximately 2 weeks ). Until the fourth day after surgery, cover the incision/bandage with a bag or plastic wrap. G. Anyone who is touching your surgical incision area should wash their hands and wear gloves. H. Keep your incision covered with gauze pads under the RAFAELA hose until it is dry. VERY IMPORTANT TO READ AND REVIEW B. There are a few signs you need to watch for after you are home. Call [facility] if you notice any of the followin. Increased severe knee pain. Some pain is expected especially when you exercise. 2. Increased swelling in your leg or knee; pain or swelling of the calf muscle in either lower leg. 3. Any fluid drainage from the incision. 4. Shortness of breath or chest pain. 5. Numbness and tingling in the surgical extremity C. Please call [facility] at if you have any concerns or questions about your operation or recovery. The doctor or his nurse will return your call promptly. D. Do not have any elective dental work or other elective procedures done for 6 weeks after your knee replacement. When you have any invasive procedure (dental cleaning, extraction, colonoscopy etc) performed, you will need to take antibiotics to prevent infection from developing in your artificial joint. Tell your other health care providers you have an artificial joint. My office will supply you with further information and the antibiotics. Call your doctor if: * Temperature above 101 degrees F. * Pain not relieved by pain medicine ordered. * Increased drainage or redness from incision. * Notify your doctor with any questions or concerns. Follow-up Visit: You will follow-up with Dr. Rubin 10-14 days after surgery. The office number is . Avoid all tobacco products. If you need help to stop smoking, call [place] at . This is a free call. Current Hospital Diet Patient's current hospital diet: Regular Diet Discharge Diet Recommended Diet: Regular Diet Procedures Procedures Performed: Left Total Knee Arthroplasty Pending Studies Studies pending at discharge: no Medical Emergencies . Who to Call and When: Medical Emergencies: If at any time you feel your situation is an emergency, please call 911 immediately. . Non-Emergent Contact Non-Emergency issues call your: Primary Care Provider . "Provider Documentation" section prepared by Pedrito Bucio. VTE Core Measure Inpt VTE Proph given/why not?: Warfarin (Coumadin), Carmel Good, SCD's
[2016-05-14] MEDS: FLUTICASONE/SALMETEROL 250/50 (ADVAIR) 14 PUFF/1 INHALER INH SCH (09:08)
[2016-05-14 09:11] LABS: PROTHROMBIN TIME (PATIENT) 11.1 SECONDS (9.0-12.0)
--- NOTE | 2016-05-14 10:59 | PROGRESS NOTE ---
DATE: 05/14/2016 She is seen and examined with Pedrito Bucio. He and I have discussed the results of the examination, I am in agreement. I did examine and talk with Leti. Her strength is normal. Her neurovascular function is normal. She has a 1+ dorsalis pedis pulse. Her output is okay and her vitals and labs are noted. We did discuss use of anticoagulants and it appears that Coumadin may be problematic due to the need for home blood draws. We discussed with her the option for using Lovenox and she was in agreement and will stop the Coumadin and place her on Lovenox 30 mg subQ b.i.d. beginning now and continuing for 4 weeks after surgery.
[2016-05-14 11:01] VITALS: BP 125/73; PULSE 70; TEMP 36.5; O2SAT 93
[2016-05-14] MEDS: ENOXAPARIN 30 MG/0.3 ML SYR SQ SCH ×2 (11:21→22:11)
[2016-05-14 14:41] VITALS: BP 118/69; PULSE 68; TEMP 36.5; O2SAT 93
--- NOTE | 2016-05-14 16:02 | Progress Note ---
Subjective Date of Service: May 14, 2016. Subjective Pt evaluation today including: conversation w/ patient, physical exam, lab review, review of inpatient medication list She is afebrile. L knee pain tolerable. She confirms that her Wellbutrin XL dose is 150mg daily. No new complaints Review of Systems All Other Systems: Reviewed and Negative Medications Acetaminophen (Tylenol Tab) 1,000 mg Q8 PRN PO; Start 05/13/16 at 18:00; Stop 06/12/16 at 17:59 Albuterol (Ventolin Hfa Inhaler) 2 puffs Q4 PRN INH; Start 05/13/16 at 17:45; Stop 06/12/16 at 17:44 Aspirin (Ecotrin Tab) 81 mg HS PO Last administered on 05/13/16 20:15; Admin Dose 81 MG; Start 05/13/16 at 21:00; Stop 06/12/16 at 20:59 Bupropion HCl (Wellbutrin-Xl Tab) 150 mg QAM PO; Start 05/15/16 at 09:00; Stop 06/14/16 at 08:59 Celecoxib (CeleBREX CAP) 200 mg BID PO Last administered on 05/14/16 09:01; Admin Dose 200 MG; Start 05/13/16 at 21:00; Stop 06/12/16 at 20:59 Docusate Sodium (coLACE CAP) 100 mg BID PO Last administered on 05/14/16 09:01 ; Admin Dose 100 MG; Start 05/13/16 at 21:00; Stop 06/12/16 at 20:59 Enoxaparin Sodium (Lovenox Inj) 30 mg Q12H SQ Last administered on 05/14/16 11: 21; Admin Dose 30 MG; Start 05/14/16 at 10:00; Stop 06/13/16 at 09:59 Metoclopramide HCl (Reglan Inj) 10 mg Q6H PRN IV Last administered on 11:19; Admin Dose 10 MG; Start 05/13/16 at 13:00; Stop 06/12/16 at 12:59 Miscellaneous (Remove Clonidine Patch) 1 ea Q72H N/A; Start 05/16/16 at 06:00; Stop 05/16/16 at 06:01 Miscellaneous Information (Check Clonidine Patch Placement) 1 ea QS N/A Last administered on 05/14/16 14:41; Admin Dose 1 EA; Start 05/13/16 at 00:00; Stop 06/12/16 at 00:00 Morphine Sulfate (MoRPHine SULFATE INJ) FOR PAIN, 1-2MG 1MG FOR P... Q4 PRN IV ; Start 05/13/16 at 13:00; Stop 05/27/16 at 12:59 Ondansetron HCl (Zofran Inj) 4 mg Q6H PRN IV Last administered on 05/14/16 07: 35; Admin Dose 4 MG; Start 05/13/16 at 13:00; Stop 06/12/16 at 12:59 Oxycodone HCl (Roxicodone Immediate Rel Tab) `1-2 tabs for pain 1 tab ... Q4 PRN PO Last administered on 05/14/16 17:38; Admin Dose 5 MG; Start 05/13/16 at 18:00; Stop 05/27/16 at 17:59 Pantoprazole Sodium (Protonix Tab) 40 mg QAM PO Last administered on 05/14/16 09:00; Admin Dose 40 MG; Start 05/14/16 at 09:00; Stop 06/13/16 at 08:59 Salmeterol Xinafoate/ Fluticasone (Advair Diskus 250/50 Inh) 1 puff QAM INH Last administered on 05/14/16 09:08; Admin Dose 1 PUFF; Start 05/14/16 at 09:00 ; Stop 06/13/16 at 08:59 Senna (Senokot Tab) 17.2 mg HS PO Last administered on 05/13/16 20:15; Admin Dose 17.2 MG; Start 05/13/16 at 21:00; Stop 06/12/16 at 20:59 Tramadol HCl (Ultram Tab) 1 tablet for pain rating... Q4H PRN PO Last administered on 05/14/16 13:08; Admin Dose 100 MG; Start 05/13/16 at 13:00; Stop 06/12/16 at 12:59 Objective Vital Signs Date Time Temp Pulse Resp B/P Pulse Ox O2 Delivery O2 Flow Rate FiO2 05/14/16 14:41 36.5 68 16 118/69 93 Room Air 05/14/16 11:01 36.5 70 16 125/73 93 Room Air 05/14/16 07:49 Room Air 05/14/16 07:10 36.5 71 16 96/61 93 Room Air 05/14/16 03:33 36.5 69 17 99/61 94 Room Air 05/13/16 23:25 Room Air 05/13/16 22:48 36.4 80 18 109/72 94 Room Air 05/13/16 18:48 36.6 88 18 109/68 92 Room Air 05/13/16 17:42 36.4 85 18 114/71 93 Room Air 05/13/16 16:55 Nasal Cannula 2.0 05/13/16 16:38 36.8 92 18 124/66 96 Nasal Cannula 2.0 Physical Exam Comments: nad, aox3 eomi, perrl, anicteric s1 s2 rrr, no murmurs appreciated ctab no w/r/r abd soft, nt/nd +BS no LE edema Laboratory Results Last 24 Hours Test 05/14/16 05:20 05/14/16 08:40 White Blood Count 11.76 K/uL Red Blood Count 3.61 M/uL Hemoglobin 11.0 g/dL Hematocrit 32.8 % Mean Corpuscular Volume 90.9 fL Mean Corpuscular Hemoglobin 30.5 pg Mean Corpuscular Hemoglobin Concent 33.5 g/dl Platelet Count 271 K/uL Mean Platelet Volume 9.9 fL Neutrophils (%) (Auto) 75.8 % Lymphocytes (%) (Auto) 16.2 % Monocytes (%) (Auto) 7.4 % Eosinophils (%) (Auto) 0.3 % Basophils (%) (Auto) 0.1 % Neutrophils # (Auto) 8.92 K/uL Lymphocytes # (Auto) 1.90 K/uL Monocytes # (Auto) 0.87 K/uL Eosinophils # (Auto) 0.04 K/uL Basophils # (Auto) 0.01 K/uL RDW Standard Deviation 45.3 fL RDW Coefficient of Variation 13.7 % Immature Granulocyte % (Auto) 0.2 % Immature Granulocyte # (Auto) 0.02 K/uL Sodium Level 141 mmol/L Potassium Level 3.6 mmol/L Chloride Level 106 mmol/L Carbon Dioxide Level 25 mmol/L Anion Gap 10.0 mmol/L Blood Urea Nitrogen 13 mg/dl Creatinine 0.75 mg/dl Est Creatinine Clear Calc Drug Dose 59.1 ml/min Estimated GFR () 92.3 Estimated GFR (Non- 79.6 BUN/Creatinine Ratio 17.7 Random Glucose 134 mg/dl Calcium Level 8.3 mg/dl Total Bilirubin 0.4 mg/dl Aspartate Amino Transf (AST/SGOT) 16 U/L Alanine Aminotransferase (ALT/SGPT) 23 U/L Alkaline Phosphatase 60 U/L Total Protein 5.8 gm/dl Albumin 2.8 gm/dl Globulin 3.0 gm/dl Albumin/Globulin Ratio 0.9 Prothrombin Time 11.1 SECONDS Prothromb Time International Ratio 1.0 Assessment and Plan 1. L knee DJD - POD #1 s/p L TKA - pain control - bowel regimen - celecoxib as ordered - counselled on naproxen use at home. pt verbalized understanding 2. Depression - cont wellbutrin 350mg daily 3. SVT - s/p ablation - no further episodes since 2011 4. Ashma - stable 5. Alcohol use - no e/o withdrawal symptoms - will monitor for s/s 6. Leukocytosis - afebrile - received 2 doses of Cefazolin katharine-op - will monitor dvt ppx: will defer to ortho post-op. gi ppx with ppi
[2016-05-14] MEDS: OXYCODONE HCL IR 5 MG TAB (IMMEDIATE RELEASE) PO PRN (17:38)
[2016-05-14] MEDS: ASPIRIN 81 MG ECTAB PO SCH (22:07)
[2016-05-14] MEDS: SENNA 8.6 MG TAB PO SCH (22:07)
[2016-05-14 22:50] VITALS: BP 110/62; PULSE 76; TEMP 36.7; O2SAT 92
[2016-05-15] MEDS: CHECK CLONIDINE PATCH PLACEMENT SCH ×2 (00:03→07:20)
[2016-05-15 07:02] VITALS: BP 106/63; PULSE 71; TEMP 36.9; O2SAT 93
[2016-05-15 07:09] LABS: BASO % 0.1 %; BASO ABS # 0.01 K/uL (0-0.2); COMPLETE YES; EOS % 0.5 %; HEMATOCRIT 31.5 % (37-47); IG% 0.3 %; LYMPH % 16.8 %; LYMPH ABS # 1.67 K/uL (1.2-3.4); MEAN CELL VOLUME 90.5 fL (80-100); MEAN CORPUSCULAR HEMOGLOBIN 30.5 pg (25-34); MEAN CORPUSCULAR HGB CONC 33.7 g/dl (32-36); MEAN PLATELET VOLUME 10.1 fL (7.4-10.4); MONO % 9.6 %; NEUT % 72.7 %; PLATELET COUNT 270 K/uL (130-400); RED BLOOD COUNT 3.48 M/uL (4.2-5.4); WHITE BLOOD COUNT 9.95 K/uL (4.8-10.8)
--- NOTE | 2016-05-15 08:44 | Progress Note ---
Orthopedic SOAP Note Subjective Date of Service: May 15, 2016. Post OP Day: 2 Reports: feeling well, pain controlled w PO medications, Denies: SOB, calf pain , chest pain, complaints, light headedness, nausea / vomiting, using MALT ROASTER Objective calves soft nontender, N/V intact, capillary refill less than 2 sec., dressing C /D/I, incision C/D/I, A&O x3, toes mobile Date Time Temp Pulse Resp B/P Pulse Ox O2 Delivery O2 Flow Rate FiO2 05/15/16 07:02 36.9 71 16 106/63 93 Room Air 05/15/16 07:00 Room Air 05/14/16 23:50 Room Air 05/14/16 22:50 36.7 76 18 110/62 92 Room Air 05/14/16 19:25 Room Air 05/14/16 14:41 36.5 68 16 118/69 93 Room Air 05/14/16 11:01 36.5 70 16 125/73 93 Room Air Laboratory Results 24 Hours: Test 05/15/16 06:39 White Blood Count 9.95 K/uL Red Blood Count 3.48 M/uL Hemoglobin 10.6 g/dL Hematocrit 31.5 % Mean Corpuscular Volume 90.5 fL Mean Corpuscular Hemoglobin 30.5 pg Mean Corpuscular Hemoglobin Concent 33.7 g/dl Platelet Count 270 K/uL Mean Platelet Volume 10.1 fL Neutrophils (%) (Auto) 72.7 % Lymphocytes (%) (Auto) 16.8 % Monocytes (%) (Auto) 9.6 % Eosinophils (%) (Auto) 0.5 % Basophils (%) (Auto) 0.1 % Neutrophils # (Auto) 7.23 K/uL Lymphocytes # (Auto) 1.67 K/uL Monocytes # (Auto) 0.96 K/uL Eosinophils # (Auto) 0.05 K/uL Basophils # (Auto) 0.01 K/uL Assessment post op day 2 s/p Left TKA Plan continue post op care pain control with prescribed medications DVT prophylaxis with Lovenox x 4 weeks WBAT left L.E. with walker PT/OT daily Dressing changed, incision looks great Ice/elevate Resume diet Discharge home today after lunch Will discuss findings further with Dr. Rubin
[2016-05-15] MEDS: CeleBREX 200 MG CAP PO SCH (09:00)
[2016-05-15] MEDS ORDERED: BuPROPion XL 150 MG TABCR PO SCH (09:00)
[2016-05-15] MEDS ORDERED: THIAMINE HCL 100 MG TAB PO SCH (09:00)
[2016-05-15] MEDS: DOCUSATE SODIUM 100 MG CAP PO SCH (09:00)
--- NOTE | 2016-05-15 09:23 | DISCHARGE SUMMARY ---
DATE OF DISCHARGE: 05/15/2016. ATTENDING PHYSICIAN: Dr. Rubin. DIAGNOSIS: Left knee degenerative joint disease. DISCHARGE DIAGNOSIS: Status post left total knee arthroplasty. PERTINENT DISCHARGE MEDICATIONS: Include: 1. Lovenox 30 mg q. 12 hours x30 days for DVT prophylaxis. 2. Percocet 5/325 mg tabs 1-2 every 4-6 hours as needed for pain. ALLERGIES: INCLUDE NONSTEROIDAL ANTI-INFLAMMATORY DRUGS AND PENICILLIN. HOSPITAL COURSE: The patient is a 70-year-old female patient of Dr. Rubin's from [facility] that underwent a left total knee arthroplasty on 05/13/[address] Rubin at the [facility]. She tolerated the procedure very well. Her activity level progressed daily. Pain was controlled with prescribed medications and she was able to be discharged home with home health physical therapy on 05/13/2016. VITAL SIGNS UPON DISCHARGE: Reveal a temperature of 36.9, pulse 71, respiratory rate of 16, blood pressure 106/63 and pulse ox of 93% on room air. LABORATORY VALUES: On 05/15/2016 revealed white count of 9.9, hemoglobin is 10.6, hematocrit 31.5 and platelet count of 270. DISCHARGE INSTRUCTIONS: 1. Discharge home today on 05/15/2016 with home health physical therapy. 2. Deep venous thrombosis prophylaxis with Lovenox and pain control with Percocet. 3. Weightbear as tolerated left lower extremity with walker assist. 4. Continue to ice and elevate accordingly. 5. Do not submerge in bath until conor removed [address] Rubin [facility]. 6. Resume previous diet. 7. Any other questions, notify [facility] at [phone].
[2016-05-15] MEDS: FLUTICASONE/SALMETEROL 250/50 (ADVAIR) 14 PUFF/1 INHALER INH SCH (09:42)
[2016-05-15] MEDS: PANTOprazole SOD 40 MG TAB PO SCH (09:44)
[2016-05-15] MEDS: OXYCODONE HCL IR 5 MG TAB (IMMEDIATE RELEASE) PO PRN ×2 (09:45→15:33)
[2016-05-15] MEDS: ENOXAPARIN 30 MG/0.3 ML SYR SQ SCH (09:46)
[2016-05-15 10:31] VITALS: BP 106/63; PULSE 71; TEMP 36.9; O2SAT 93
--- NOTE | 2016-05-15 18:06 | Progress Note ---
Subjective Date of Service: May 15, 2016. Subjective Pt evaluation today including: conversation w/ patient Pt is awaiting d/c later today. Eating well. Doing well post-op. Pt denies fever, SOB, chest pain, abd pain, n/v/c/d, LE pain or swelling. ROS as noted above, otherwise neg. Objective Vital Signs Date Time Temp Pulse Resp B/P Pulse Ox O2 Delivery O2 Flow Rate FiO2 05/15/16 10:31 36.9 71 16 93 Room Air 05/15/16 07:02 36.9 71 16 106/63 93 Room Air 05/15/16 07:00 Room Air 05/14/16 23:50 Room Air 05/14/16 22:50 36.7 76 18 110/62 92 Room Air 05/14/16 19:25 Room Air Physical Exam General Appearance: WD/WN, no apparent distress Respiratory/Chest: no respiratory distress Cardiovascular: no edema Extremities: no pedal edema Neurologic/Psychiatric: alert, normal mood/affect Skin: normal color, warm/dry Laboratory Results Last 24 Hours Test 05/15/16 06:39 White Blood Count 9.95 K/uL Red Blood Count 3.48 M/uL Hemoglobin 10.6 g/dL Hematocrit 31.5 % Mean Corpuscular Volume 90.5 fL Mean Corpuscular Hemoglobin 30.5 pg Mean Corpuscular Hemoglobin Concent 33.7 g/dl Platelet Count 270 K/uL Mean Platelet Volume 10.1 fL Neutrophils (%) (Auto) 72.7 % Lymphocytes (%) (Auto) 16.8 % Monocytes (%) (Auto) 9.6 % Eosinophils (%) (Auto) 0.5 % Basophils (%) (Auto) 0.1 % Neutrophils # (Auto) 7.23 K/uL Lymphocytes # (Auto) 1.67 K/uL Monocytes # (Auto) 0.96 K/uL Eosinophils # (Auto) 0.05 K/uL Basophils # (Auto) 0.01 K/uL RDW Standard Deviation 45.9 fL RDW Coefficient of Variation 13.9 % Immature Granulocyte % (Auto) 0.3 % Immature Granulocyte # (Auto) 0.03 K/uL
== END 2016-05-15 16:40 | disposition home or self-care (01) | DRG 470 ==
LOC: ENRESERVTM → ENRESERVDT → C.ACU 07:30 → C.3E 09:30
PROVIDERS: ADMIT Physical Medicine & Rehabilitation Sports Medicine; ATTEND Physical Medicine & Rehabilitation Sports Medicine
PROC: 0SRD0J9 Replacement of Left Knee Joint with Synthetic Substitute, Cemented, Open Approach (ICD-10-PCS; principal; 2016-05-13 10:00)
DX: M17.12 Unilateral primary osteoarthritis, left knee (principal); M21.162 Varus deformity, not elsewhere classified, left knee; D72.829 Elevated white blood cell count, unspecified; J45.909 Unspecified asthma, uncomplicated; K21.9 Gastro-esophageal reflux disease without esophagitis; R32 Unspecified urinary incontinence; F32.9 Major depressive disorder, single episode, unspecified; F41.9 Anxiety disorder, unspecified; Z87.891 Personal history of nicotine dependence; Z79.82 Long term (current) use of aspirin; Z79.51 Long term (current) use of inhaled steroids; Z79.899 Other long term (current) drug therapy; Z72.89 Other problems related to lifestyle

== ENCOUNTER → 2016-08-18 | Outpatient (CLI) | payer BC ==
[~2016-08-18] MED LIST changes: +ACET-1047 PO; -ACETAMINOPHEN 500 MG TAB PO SCH; +ASPI81TA28 PO; -BUPIVACAINE 0.25% 30 ML VIAL ONE; -BUPIVACAINE 0.5 % 5 MG/1 ML PF 10ML VIAL ONE; -BUPIVACAINE LIPOSOME 266 MG, BUPIVACAINE/EPINEPHRINE INJ 50 ML, SODIUM CHLORIDE 0.9% PF... INFIL SCH; -BUPR100T8 PO; +BUPRTAB51 PO; -CEFAZOLIN 1000MG/55 ML D5W 55 ML IV SCH; +CLC100 PO; -CLONIDINE HCL 0.1 MG/24 HR TRANSDERM SYS TD SCH; -CeleBREX 200 MG CAP PO SCH; -DEXAMETHASONE 4 MG TAB PO SCH; -DIPH1TAB PO; +DIPH1TAB87 PO; -GABAPENTIN 300 MG CAP PO SCH; -LACTATED RINGER'S 1000ML 1,000 ML IV SCH; -LACTATED RINGER'S 1000ML 500 ML IV ONE; -LACTATED RINGER'S 1000ML IV SCH; +LVNIS30 SQ; +MULT-890 PO; +ONDA4TAB10 SL; +OXYC-57 PO; -OXYCODONE HCL 10 MG TABCR (OXYCONTIN) PO SCH; -TRAMADOL HCL 50 MG TAB PO SCH; +ULT50X PO
== END | disposition home or self-care (01) ==
LOC: C.MAMM 14:09
PROVIDERS: ATTEND Obstetrics & Gynecology
DX: M85.851 Other specified disorders of bone density and structure, right thigh (principal); M85.852 Other specified disorders of bone density and structure, left thigh

== ENCOUNTER → 2016-08-18 | Outpatient (CLI) | payer BC ==
--- NOTE | 2016-08-19 07:55 | MAMMOGRAPHY REPORT ---
BILATERAL DIGITAL SCREENING MAMMOGRAM WITH CAD: 08/18/2016 CLINICAL HISTORY: Routine screening. Patient has no complaints. TECHNIQUE: Bilateral CC and MLO views were obtained. Current study was also evaluated with a Comput er Aided Detection (CAD) system. COMPARISON: Comparison is made to exams dated: 06/15/2015 mammogram, 06/09/2014 mammogram, 05/27/2013 mammogram, 05/19/2012 mammogram, 05/19/2011 mammogram, and 05/13/2010 mammogram - [facility]. BREAST COMPOSITION: The tissue of both breasts is heterogeneously dense, which may obscure small ma sses. FINDINGS: There is stable asymmetry in the superior posterior right breast. Minimal vascular calci fication in the breasts. No new suspicious mass, architectural distortion or cluster of microcalcif ications is seen. IMPRESSION: ACR BI-RADS CATEGORY 1: NEGATIVE There is no mammographic evidence of malignancy. A 1 year screening mammogram is recommended. The p atient will receive written notification of the results. Approximately 10% of breast cancers are not detected with mammography. A negative mammographic repor t should not delay biopsy if a clinically suggestive mass is present. Micaela Garland M.D. ay/:08/18/2016 16:58:26 Postage Machine Operator: Dasha ORR(R)(M), [facility] letter sent: Normal 1/2 BI-RADS Code: ACR BI-RADS Category 1: Negative
== END | disposition home or self-care (01) ==
LOC: C.MAMM 14:08
PROVIDERS: ATTEND Obstetrics & Gynecology
DX: Z12.31 Encounter for screening mammogram for malignant neoplasm of breast (principal); M85.851 Other specified disorders of bone density and structure, right thigh; M85.852 Other specified disorders of bone density and structure, left thigh

== ENCOUNTER → 2016-10-06 | Outpatient (CLI) | payer BC ==
[~2016-10-06] MED LIST changes: -ACET-1047 PO; -ASPI81TA28 PO; -CLC100 PO; +DIPH1TAB PO; -DIPH1TAB87 PO; -MULT-890 PO; -NAPR1TAB9 PO; -ONDA4TAB10 SL; -ULT50X PO
== END | disposition home or self-care (01) ==
LOC: C.PATHSPEC 16:19
PROVIDERS: ATTEND Obstetrics & Gynecology
DX: N76.2 Acute vulvitis (principal)

== ENCOUNTER → 2016-11-04 | Outpatient (CLI) | payer BC ==
[2016-11-04 13:32] LABS: CALCIUM 9.9 mg/dl (8.5-10.1)
[2016-11-04 14:05] LABS: CALCIUM URINE < 5.0 mg/dl; URINE COLLECTION TIME 24 HOURS
[2016-11-05 16:44] LABS: ALBUMIN 4.3 G/DL (3.8-4.8); GAMMA GLOBULIN 1.1 G/DL (0.8-1.7); TOTAL PROTEIN 7.4 G/DL (6.2-8.3)
== END | disposition home or self-care (01) ==
LOC: C.LABBFT 08:37
PROVIDERS: ATTEND Internal Medicine Rheumatology
DX: M85.80 Other specified disorders of bone density and structure, unspecified site (principal); E55.9 Vitamin D deficiency, unspecified

== ENCOUNTER → 2016-12-15 | Outpatient (CLI) | payer BC ==
[~2016-12-15] MED LIST changes: -OXYC-57 PO
== END | disposition home or self-care (01) ==
LOC: C.RDSM 11:36
PROVIDERS: ATTEND Physical Medicine & Rehabilitation Sports Medicine
DX: M17.11 Unilateral primary osteoarthritis, right knee (principal); Z96.652 Presence of left artificial knee joint

== ENCOUNTER 2017-02-24 07:14 | Inpatient (IN) | payer BC, OTHER ==
--- NOTE | 2017-02-04 11:54 | History and Physical ---
History & Physical Date & Time of Service: Feb 04, 2017 at 11:25 Chief Complaint: Right Knee Degenerative Joint Disease Primary Care Physician: Kalli Rivera D.O. History of Present Illness Source: patient The patient is a 71-year-old female who Has been treated in our office for right knee pain. She has had bilateral knee pain for many years and recently underwent left total knee arthroplasty by Dr. Rubin in April 2016. She is doing well with that and would like to proceed with a right total knee arthroplasty. States that she has pain every day with her right knee. She has pain with activities of daily living and weightbearing and range of motion. It affects everything that she does. She does have night pain and rest pain as well. She has failed conservative treatment which has included physical therapy , corticosteroid injections, viscous supplementation. Aggravating activities include walking, going up and down steps, and sitting in one place for too long. Everything that she has tried is not provided long-term relief and with her doing so well after her left knee replacement she would like to proceed with the right in hopes that she is able to improve her [id number]. X- rays that have been taken in our office show end-stage degenerative joint disease of her right knee and surgical intervention was recommended. She has agreed to proceed. Past Medical/Surgical History PAST MEDICAL HISTORY: 1. Asthma 2. Depression 3. Gastroesophageal reflux disease 4. Varicose veins 5. Osteopenia 6. Supraventricular tachycardia 7. Urinary incontinence 8. Osteoarthritis PAST SURGICAL HISTORY: 1. A biopsy skin 2. Colonoscopy 3. Cardiac ablation 4. section 5. Tonsillectomy/adenoidectomy 6. Left total knee arthroplasty May 13, [address] Josué Rubin Family History Mother has a history of congestive heart failure and ovarian cancer. Father has a history of myocardial infarction, hypertension, hyperlipidemia. Brother has a history of a myocardial infarction. Social History Patient states she was a 35-40 year one pack per day smoker but quit smoking in 2010. She states she consumes approximately 2 alcoholic beverages per day. She denies any illicit drug use. Smoking Status: Former Smoker Alcohol Use: occasionally Drug Use: none Housing status: lives alone (But is going to have someone stay at her house for a week after surgery) Immunizations History of Influenza Vaccine: Unknown History of Tetanus Vaccine?: Unknown History of Pneumococcal: Unknown History of Hepatitis B Vaccine: Unknown Multi-Drug Resistant Organisms History of MDRO: No Allergies Coded Allergies: Penicillins (Verified Allergy, Mild, ITCHING, 05/13/16) NSAIDs (Verified Adverse Reaction, Unknown, GI UPSET WITH PROLONGED USE, ) Home Medications Scheduled Aspirin Enteric Coated (Ecotrin Or Generic *), 81 MG PO HS Bupropion Hcl (Wellbutrin Xl), 1 TAB PO DAILY Calcium/Vitamin D (Os-Ricardo 500 Plus D), 1 TAB PO QAM Diphenhydramine Hcl (Benadryl Allergy), 25 MG PO HS Fluticasone Prop/Salmeterol (Advair Diskus 250/50 60 Dose), 1 PUFF INH QAM Pantoprazole (Protonix), 20 MG PO QAM Scheduled PRN Albuterol Sulfate (Proair Respiclick), 2 PUFF INH Q4 PRN for SOB/Wheezing Naproxen (Aleve), 220 MG PO Q8 PRN for Pain Review of Systems Constitutional: No fever, No chills, No sweats, No weight loss, No fatigue Eyes: No worsening of vision ENT: No hearing loss, No sore throat, No tinnitus, No dental problems Respiratory: No cough, No sputum, No wheezing, No shortness of breath Cardiovascular: No chest pain, No edema, No palpitations Abdomen: No pain, No nausea, No vomiting, No diarrhea, No constipation Musculoskeletal: + joint pain (right knee), No muscle pain, No swelling, No calf pain Genitourinary - Female: + urinary incontinence, No dysuria, No urinary frequency, No urinary urgency Neurologic: No memory loss, No numbness/tingling, No balance problems Psychiatric: No anxiety, No substance abuse Endocrine: No fatigue Hematologic / Lymphatic: No abnormal bleeding/bruising, No clotting problems Integumentary: No rash, No itch Allergic / Immunologic: No frequent infections, No poor healing Physical Exam General Appearance: WD/WN, no apparent distress Head: normocephalic, atraumatic Eyes: normal inspection, PERRL, EOMI, sclerae normal ENT: normal ENT inspection, hearing grossly normal, TMs normal, pharynx normal Neck: supple, no carotid bruits, trachea midline Respiratory/Chest: chest non-tender, lungs clear, normal breath sounds, no respiratory distress, no accessory muscle use Cardiovascular: regular rate, rhythm, no edema, no murmur, normal peripheral pulses Abdomen/GI: normal bowel sounds, non tender, soft Extremities/Musculoskelatal: no calf tenderness, normal capillary refill, no pedal edema, + pertinent finding (Exam of her right knee shows range of motion 0 /15/120. Passive straight leg raising is negative. Tay's test is negative. She has full range of motion of her right hip. There is trace MCL laxity and mild varus alignment, 5/5 strength with 1+ posterior tibial and dorsalis pedis pulses. Tenderness medial joint line. Popliteal angle is 150. Decreased patellar mobility.) Neurologic/Psych: no motor/sensory deficits, alert, normal mood/affect, normal reflexes, oriented x 3 Skin: normal color, warm/dry, no rash Diagnostics Laboratory Results Laboratory data: Labs from January 30, 2017 sodium 138, potassium 3.7, chloride 105, carbon dioxide 25, BUN 21, creatinine 0.87, random glucose 91, calcium 9.2, hemoglobin 14.1, hematocrit 41.0, platelet count 323, PT 11.1, INR 1.0, APTT 26.5 Diagnostic Radiology Diagnostic images: Long leg alignment film of both legs shows good alignment of the left total knee. On the right side she has varus alignment, medial compartment joint space narrowing. Views AP lateral and merchant view show end-stage joint disease of her right knee with medial joint space narrowing, osteophyte formation, and subchondral sclerosis. CXR normal Impression Assessment and Plan Assessment: End-stage degenerative joint disease right knee Plan: Patient is scheduled for elective right total knee arthroplasty February 16, [address] Josué Rubin at the [facility]. Sent complications of surgery were explained to the patient and included but not limited to infection, pain, bleeding, scarring, nerve and blood vessel damage, wound problems, weakness, stiffness, hardware failure, loosening, wear, fracture , blood clots, embolisms, heart attack, stroke and . All questions were answered and informed consent was obtained. She will obtain a preoperative chest x-ray, CBC, BMP, type and screen, PT/PTT and preoperative clearance from her family physician Dr. Kalli Rivera prior to surgery. Postoperative course was discussed. We will use Lovenox 30 mg twice a day 28 days postoperatively for DVT prophylaxis. She would like to go home after surgery with home health, she had done at her last admission. [facility]. She does have someone that will stay with her for approximately a week after surgery. He has the call our office with any further problems, questions, or concerns. She will follow up with Dr. Rubin and evie 14 days after surgery for staple removal. All questions were answered today. Level of Care Med/Surg Resuscitation Status FULL RESUSCITATION VTE Prophylaxis VTE Risk Assessment Done? Y/N: Yes Risk Level: Moderate Given or contraindicated: Enoxaparin (Lovenox)SQ (30 mg subcutaneous twice a day 28 days), T.E.Shubham Stockings, SCD's Additional Copies To Kalli Rivera D.O.
[2017-02-05 11:25] VITALS: Ht 157.5 cm; Wt 59.0 kg
[~2017-02-24] VITALS: Ht 157.5 cm; Wt 59.0 kg
[2017-02-24] VITALS (8 sets, daily range): BP systolic 92–136; BP diastolic 52–77; PULSE 81–96; TEMP 36.3–37; O2SAT 94–98
[2017-02-24] MEDS: TRANEXAMIC ACID INJ 1,000 MG in SYRINGE 0 ML IV SCH ×2 (06:30→10:00)
[~2017-02-24 07:14] MED LIST changes: +ACETAMINOPHEN 500 MG TAB PO SCH; -ASPEC81 PO; +ASPI81TA28 PO; +BUPIVACAINE 0.25% 30 ML VIAL ONE; +BUPIVACAINE 0.5 % 5 MG/1 ML PF 10ML VIAL ONE; +CEFAZOLIN 2000MG IV PUSH 10 ML IV SCH; +CLONIDINE HCL 0.1 MG/24 HR TRANSDERM SYS TD SCH; +CeleBREX 200 MG CAP PO SCH; +DEXAMETHASONE 4 MG TAB PO SCH; +DEXAMETHASONE SOD INJ 4 MG/ML VIAL ONE; -DIPH1TAB PO; +DIPH1TAB87 PO; +EpINEphrine INJ 1MG/ML AMP 1 MG/ML AMP ONE; +FAMOTIDINE 20 MG TAB PO SCH; +GABAPENTIN 300 MG CAP PO SCH; +LACTATED RINGER'S 1000ML 1,000 ML IV SCH; +LACTATED RINGER'S 1000ML IV SCH; -LVNIS30 SQ; +METOCLOPRAMIDE HCL 10 MG TAB PO SCH; +OXYCODONE HCL 10 MG TABCR (OXYCONTIN) PO SCH; +ROPIVACAINE 5MG/ML 30 ML 150 MG, BUPIVACAINE/EPINEPHR 0.5% MPF 30 ML, KETOROLAC TROMETH... INFIL SCH; +TRAMADOL HCL 50 MG TAB PO SCH
--- NOTE | 2017-02-24 09:55 | History & Physical Bridge Note ---
H&P Re-Evaluation Bridge Note: I have examined the patient, reviewed the History & Physical and in the interval since the performance of the History & Physical I have noted the following changes of clinical significance: No changes noted
[2017-02-24] MEDS ORDERED: FENTANYL CITRATE INJ 50 MCG/1 ML 2 ML VIAL IV PRN (10:00)
[2017-02-24] MEDS ORDERED: ONDANSETRON INJ 2 MG/ML 2 ML VIAL IV PRN (10:00)
[2017-02-24] MEDS ORDERED: EpHEDrine SULFATE INJ 50 MG/ML AMP IV PRN (10:00)
[2017-02-24] MEDS ORDERED: ATROPINE SULFATE 0.1 MG/ML 5ML SYR IV PRN (10:00)
[2017-02-24] MEDS ORDERED: FENTANYL CITRATE INJ 50 MCG/1 ML 2 ML VIAL ONE (10:09)
[2017-02-24] MEDS ORDERED: ORTHO JOINT ANESTHETIC ONE (10:25)
[2017-02-24] MEDS ORDERED: POVIDONE-IODINE OP SOLN 30 ML BTL ONE (10:25)
[2017-02-24] MEDS ORDERED: BACITRACIN 50000 UNIT VIAL ONE (10:27)
[2017-02-24] MEDS ORDERED: PROPOFOL IV EMULSION 10 MG/ML 20 ML VIAL IV ONE (10:55)
[2017-02-24] MEDS ORDERED: LIDOCAINE HCL 2% 2 ML VIAL (20MG/ML) ONE (10:55)
[2017-02-24] MEDS ORDERED: MIDAZOLAM HCL 1 MG/ML 2ML VIAL ONE ×2 (10:55→10:56)
[2017-02-24] MEDS ORDERED: PHENYLEPHRINE 100MCG/ML 5ML SYR ONE ×2 (11:11→12:04)
[2017-02-24] MEDS ORDERED: EpHEDrine SULFATE 50MG/5ML SYR ONE (11:21)
--- NOTE | 2017-02-24 13:29 | [facility] Post Operative Brief Note ---
Immediate Operative Summary Operative Date Feb 24, 2017. Pre-Operative Diagnosis End-stage degenerative joint disease right knee Post-Operative Diagnosis End-stage degenerative joint disease right knee Procedure(s) Performed Right total knee arthroplasty Surgeon Dr. Rubin Needle Straightener Surgeon(s) Verónica Medley PA-C Estimated Blood Loss 10 cc Findings arthritis Specimens A: Right knee bone and tissue Drains 0 Anesthesia spina lwith sedation Complication(s) None Disposition Recovery Room / PACU
[2017-02-24] MEDS ORDERED: BISACODYL 10 MG SUPP PR PRN (14:00)
[2017-02-24] MEDS ORDERED: NO NSAIDS SCH (14:00)
[2017-02-24] MEDS ORDERED: MoRPHine SULFATE 2 MG/ML CARP IV PRN (14:00)
[2017-02-24] MEDS ORDERED: SOD PHOSPHATE/SOD BIPHOSPHATE ENEMA 132 ML BTL PR PRN (14:00)
[2017-02-24] MEDS ORDERED: ACETAMINOPHEN 325 MG TAB PO PRN (14:00)
[2017-02-24] MEDS ORDERED: METOCLOPRAMIDE HCL INJ 5 MG/ML 2 ML VIAL IV PRN (14:00)
[2017-02-24] MEDS ORDERED: MAGNESIUM HYDROXIDE SUSP 30 ML UDC PO PRN (14:00)
--- NOTE | 2017-02-24 14:05 | [facility] Operative Report ---
Operative Report Operative Date Feb 24, 2017. Pre-Operative Diagnosis End-stage degenerative joint disease right knee Post-Operative Diagnosis End-stage degenerative joint disease right knee Procedure(s) Performed Right total knee arthroplasty Surgeon Dr. Rubin Postage Machine Operator Surgeon(s) Verónica Medley PA-C Estimated Blood Loss 10 cc Findings DJD right knee Specimens A: Right knee bone and tissue Drains 0 Anesthesia spinal with sedation Complication(s) None Disposition Recovery Room / PACU (stable) Indications Patient is a 71 year old female, with complaints of worsening right knee pain over the last few months. Failed conservative treatment. X-rays show end stage DJD right knee. Surgical intervention recommended. Risks/complications discussed, informed consent obtained. Description of Procedure Patient was taken to the operating room, given IV Ancef for surgical prophylaxis. She was given spinal anesthesia with peripheral nerve block. Time out performed, prepped and draped in routine sterile fashion. I was present during the entire case, please see Dr. Rubin's operative report for further detail. Patient was awakened and taken to the recovery room in stable condition. I attest to the content of the Intraoperative Record and any orders documented therein. Any exceptions are noted below.
--- NOTE | 2017-02-24 14:14 | Anesthesiology Progress Note ---
Anesthesia Post Op Note Date & Time Feb 24, 2017 at 14:13 Vital Signs Pain Intensity: 3 Vital Signs Past 12 Hours Date Time Temp Pulse Resp B/P (MAP) Pulse Ox O2 Delivery O2 Flow Rate FiO2 02/24/17 14:05 86 13 111/71 97 Nasal Cannula 2 02/24/17 13:55 83 12 106/70 97 Oxymask 10 02/24/17 13:47 36.2 85 16 115/66 97 Oxymask 10 02/24/17 08:03 36.6 81 20 136/73 96 Room Air Notes Mental Status: alert / awake / arousable, participated in evaluation Pt Amnestic to Procedure: Yes Nausea / Vomiting: adequately controlled Pain: adequately controlled Airway Patency, RR, SpO2: stable & adequate BP & HR: stable & adequate Hydration State: stable & adequate Neuraxial Anesthesia: was administered, sensory block is resolving Anesthetic Complications: no major complications apparent
--- NOTE | 2017-02-24 14:25 | DIAGNOSTIC IMAGING REPORT ---
R KNEE 1 OR 2 VIEWS ROUTINE CLINICAL HISTORY: 71 years-old Female presenting with AP/LATERAL IN PACU RIGHT KNEE. TECHNIQUE: Frontal and lateral views of the right knee were obtained. COMPARISON: 01/14/2016. FINDINGS: There has been interval total right knee arthroplasty. Expected intra-articular and soft tissue emphysema. Overlying skin conor. Mild diffuse soft tissue swelling. No acute fracture or malalignment. No apparent hardware complication. IMPRESSION: Expected postsurgical appearance status post total right knee arthroplasty. Electronically signed by: Josué Hanks M.D. 02/24/2017 2:24 PM Dictated Date/Time: 02/24/2017 2:23 PM
[2017-02-24] MEDS ORDERED: MoRPHine SULFATE 4 MG/ML 1 ML CARP\\VIAL IV PRN (14:45)
[2017-02-24] MEDS ORDERED: ALBUTEROL HFA 8 GM INHALER INH PRN (15:00)
--- NOTE | 2017-02-24 15:18 | OPERATIVE REPORT ---
DATE OF OPERATION: 02/24/2017 PREOPERATIVE DIAGNOSIS: Osteoarthritis, right knee. POSTOPERATIVE DIAGNOSIS: Same. PROCEDURE: Cemented right total knee arthroplasty. SURGEON: Dr. Josué Rubin. MARINE ENGINEERING TECHNICIANS: Toño Carter, fellow. SECOND MARINE ENGINEERING TECHNICIANS: Verónica Valerio, physician's inventory assistant. ANESTHESIA: Spinal with sedation. INDICATIONS FOR THE PROCEDURE: The patient is a 71-year-old female who is status post an otherwise successful contralateral knee replacement. She has symptoms in the right knee refractory to nonsurgical methods of management and would like to have surgery performed. PROCEDURE IN DETAIL: Informed consent was obtained. The patient was identified as Jeana Boss. She identified the operative site as the right knee. I marked it with my initials. A preoperative surgical timeout was performed. She was positioned supine on the OR table with a bump under the right knee, right hip and a tourniquet on the right thigh. The limb was prepped and draped in the usual sterile fashion. DVT prophylaxis intraoperatively with foot pumps and postoperatively with early mobility, chemoprophylaxis and mechanical devices. The exam under anesthesia revealed range of motion of 0/10/110 with varus alignment. Intact cruciate and collateral stability. The leg was prepped and draped in the usual sterile fashion. The tourniquet inflated to 250 mmHg. A midline longitudinal incision was made followed by medial parapatellar arthrotomy. The synovial reflection in the lateral gutter was released. The retropatellar fat pad and fat tissue on the anterior aspect of the distal femur were excised. A medial release was performed. The lateral compartment was relatively normal. The lateral meniscus was excised. The cruciate ligaments were excised. Both cruciates were present. Osteophytes in the notch were excised. The medial meniscus was deficient and there were [id number] changes in the medial compartment with an erosion. The medial meniscus was resected. Marginal osteophytes were removed. The tibia was then subluxated and a fighter pilot hole was drilled just anterior to the lateral tibial spine. The intramedullary alignment vadim was inserted. The guide was aligned to the medial portion of the tibial tubercle and pinned into place. The knee was then held in extension and the alignment vadim showed significant valgus alignment to the cut. I then pulled out the medial pin, rotated the guide until the alignment vadim was in the appropriate position bisecting the ankle joint and intersecting the second ray. The slope was appropriate. I pinned this in place and then rechecked with the stylus. This resulted in an 8-mm cut laterally and more like a 6-mm cut medially. I was uncomfortable with that degree of medial resection as given her degree of arthritis it she would typically be to give or take. I therefore double checked everything and tried to repin the guidepin, but could not get the appropriate alignment. I then started over from scratch with the alignment of the guide, pinning it into place and use of the alignment vadim. At this time, I took 2-mm less resection off of the initial setting and this resulted in a 10-mm cut laterally and a 4-mm cut medially, which I felt was appropriate. The extramedullary alignment vadim was utilized to confirm alignment and slope. The cut was made and sized to a 2.5. Loose body was removed from the knee. A fighter pilot hole was drilled in the distal femur followed by insertion of the intramedullary alignment vadim, 7 degrees valgus right knee, 12-mm cut. This cut was made and our extension gap was a slightly lax 10. I performed a little bit more medial release. The femoral sizing block was applied and sized to a 2.5. The external rotation drill holes matched the transepicondylar axis. The cut was made protecting the collateral ligaments after using the size 3 anterior down guide. Prior to that, the guide was affixed to the size 2.5 level. The flexion gap was loose and actually fitted to be at 12.5. The extension gap was all now also symmetric 12.5. Osteophytes in the back of medial side of the knee were removed. The box cutting guide was aligned, lateralized and a cut was made. The femoral component was applied. The tibia was exposed. The 2.5-mm tray was aligned, pinned into place and the keel was prepared with the drill and punch. The trial polyethylene was applied and there was excellent stability in full extension and 90 degrees with trace varus and valgus laxity in mid position. No instability of the implant or of the knee. Attention was turned to patella where the peripatellar synovium was removed along with marginal osteophytes. The patellar thickness measured 18. I selected a 32-mm patella and initially set the resection to preserve 13 mm of bone. This turned out to be slightly thick and slightly irregular. I then went ahead and cut an additional mm using the guide, so that my residual patellar thickness was 12 mm. The patellar component was distalized and medialized and the lug holes were drilled. Patellar tracking was fine with the no hands technique. The components were removed. The back of the knee was injected with the ortho joint mix. The canals were plugged and copious irrigation of the bony surfaces was performed. Two bags of Simplex P cement were mixed and while in a doughy working state, used to cement the femur, tibia and patella into place. The knee was held in full extension with a trial spacer until the cement hardened and during that time, the remainder of the ortho joint mix was injected about the knee including the skin and subcutaneous tissues and then Betadine lavage was performed. Tourniquet let down after 122 minutes of inflation. Meticulous hemostasis was performed with minimal bleeding. The back of the knee was inspected for cement and several pieces of which were removed as necessary. Stability was excellent with the 12.5-mm thick polyethylene insert and this final component was then inserted. Composite patellar thickness was 20 mm. I think that her patella was substantially worn and I think that this was a reasonable increase in the thickness of her patella by approximately 2 mm. Additionally, gravity assisted flexion with the extensor mechanism close was again about 110 degrees. The knee was fully straight. She had trace MCL laxity and 1+ LCL laxity in mid position and no laxity at 0-90 degrees. The knee was irrigated. The extensor mechanism was then closed with interrupted #2 FiberWires above the equator of the patella and running #1 Vicryl below. The skin was closed in layers with 0 and 2-0 Vicryl and conor. A soft sterile dressing including Xeroform, 4 x 4's, ABD and a full length Esdras wrap was applied. The patient awakened from anesthesia without difficulty and taken to recovery room in stable condition. The resected bone was sent for specimen. There were no complications. Counts were correct at the end of case. Blood loss was approximately 10 mL. At the conclusion of the operation, I spoke to the patient's friends and informed them of my findings. Detailed postoperative instructions were given. She will be rehabilitated according to the total knee protocol. Components inserted included the 2.5 right posterior stabilized femur, a 2.5 mobile bearing keeled tibial tray, a 32-mm 3 peg oval dome patella and a size 2.5 x 12.5 mm thick [employer] P[employer] polyethylene insert. I attest to the content of the Intraoperative Record and any orders documented therein. Any exception s are noted below.
[2017-02-24] MEDS: D5W AND 1/2NSS + 20MEQ KCL 1,000 ML IV SCH (16:11)
[2017-02-24] MEDS: TRAMADOL HCL 50 MG TAB PO PRN (16:12)
[2017-02-24] MEDS: CEFAZOLIN IV 1,000 MG in SYRINGE 0 ML IV SCH (18:39)
[2017-02-24] MEDS: ONDANSETRON INJ 2 MG/ML 2 ML VIAL IV PRN (18:53)
[2017-02-24] MEDS: DOCUSATE SODIUM 100 MG CAP PO SCH (20:34)
[2017-02-24] MEDS: ASPIRIN 81 MG ECTAB PO SCH (20:34)
[2017-02-24] MEDS ORDERED: CeleBREX 200 MG CAP PO SCH (21:00)
--- NOTE | 2017-02-24 22:39 | PROGRESS NOTE ---
DATE: 02/24/2017 NOTE: She is resting comfortably in bed. The pain is well-controlled. She is afebrile. Her vital signs are stable. X-rays show good positioning of her total knee arthroplasty without complication. She has 1+ posterior tibial pulse. The dressing is clean and dry. She has numbness and tingling on the top and bottom of her foot. She can plantarflex her ankle and toes with strength about 4/5, but cannot dorsiflex either. She is status post a right total knee replacement. She is doing very well and I have discussed my surgical findings with her. She will be rehabilitated according to the total knee protocol in rehabilitation. PLAN: We will follow up with her tomorrow. We talked about multimodal pain medication and management. Her anticoagulation will start in the morning.
[2017-02-25] MEDS: D5W AND 1/2NSS + 20MEQ KCL 1,000 ML IV SCH ×2 (02:03→10:14)
[2017-02-25] MEDS: CEFAZOLIN IV 1,000 MG in SYRINGE 0 ML IV SCH (02:04)
[2017-02-25 03:10] VITALS: BP 94/55; PULSE 82; TEMP 36.7; O2SAT 95
[2017-02-25] MEDS ORDERED: TRANEXAMIC ACID INJ 1,000 MG in SYRINGE 0 ML IV SCH (06:00)
[2017-02-25 06:39] LABS: HEMATOCRIT 32.6 % (37-47); MEAN CELL VOLUME 90.6 fL (80-100); MEAN CORPUSCULAR HGB CONC 33.1 g/dl (32-36); MEAN PLATELET VOLUME 9.5 fL (7.4-10.4); PLATELET COUNT 264 K/uL (130-400); WHITE BLOOD COUNT 16.53 K/uL (4.8-10.8)
[2017-02-25] MEDS: PANTOprazole SOD 40 MG TAB PO SCH (07:05)
[2017-02-25 07:07] LABS: BUN/CREATININE RATIO 22.1 (10-20); CALCIUM 8.5 mg/dl (8.5-10.1); CREATININE 0.84 mg/dl (0.60-1.20); POTASSIUM 4.3 mmol/L (3.5-5.1)
[2017-02-25] MEDS ORDERED: DEXAMETHASONE 4 MG TAB PO SCH (07:30)
[2017-02-25 07:34] VITALS: BP 100/60; PULSE 65; TEMP 36.8; O2SAT 94
[2017-02-25] MEDS: BuPROPion XL 300 MG TABCR PO SCH (08:12)
[2017-02-25] MEDS: DOCUSATE SODIUM 100 MG CAP PO SCH ×2 (08:12→20:43)
[2017-02-25] MEDS: MULTIVITAMIN TAB PO SCH (08:13)
[2017-02-25] MEDS: FLUTICASONE/SALMETEROL 250/50 (ADVAIR) 14 PUFF/1 INHALER INH SCH (08:13)
[2017-02-25] MEDS: CALCIUM 600MG + VIT D 400 IU TAB PO SCH (08:13)
[2017-02-25] MEDS: TRAMADOL HCL 50 MG TAB PO PRN ×2 (08:18→13:19)
[2017-02-25] MEDS: ENOXAPARIN 30 MG/0.3 ML SYR SQ SCH ×2 (08:21→20:43)
[2017-02-25 08:59] VITALS: O2SAT 94
--- NOTE | 2017-02-25 09:22 | Orthopedic Progress Note ---
Orthopedic Progress Note Date of Service Feb 25, 2017. Subjective Post OP Day: 1 Reports: feeling well, pain controlled w PO medications, Denies: complaints, chest pain, SOB, nausea / vomiting, light headedness, calf pain Additional Notes: States that this knee is doing much better than her previous knee earlier this year. She feels that she is doing very well. She has taken some tramadol to help with mild pain. She is very pleased. Objective calves soft nontender, N/V intact, capillary refill less than 2 sec., dressing C /D/I, incision C/D/I, A&O x3, toes mobile Able to and apparently short leg raise her lower extremity. Able to dorsiflex and plantarflex right foot. Distal sensation is normal. Distal pulses are 1+. Knee immobilizer in place. Date Time Temp Pulse Resp B/P (MAP) Pulse Ox O2 Delivery O2 Flow Rate FiO2 02/25/17 08:59 94 Room Air 02/25/17 07:34 36.8 65 12 100/60 (73) 94 Room Air 02/25/17 07:05 Room Air 02/25/17 03:10 36.7 82 18 94/55 (68) 95 Room Air 02/25/17 00:20 Room Air 02/24/17 23:14 37.0 85 18 92/52 (65) 95 Room Air 02/24/17 20:17 36.4 89 16 98/57 (71) 94 Room Air 02/24/17 17:30 36.5 88 17 100/60 (73) 95 Room Air 02/24/17 16:30 36.4 87 16 103/62 (76) 94 Room Air 02/24/17 16:00 Room Air 02/24/17 15:24 36.3 93 16 120/77 (91) 98 Nasal Cannula 2.0 02/24/17 14:57 36.4 88 16 112/67 (82) 98 Nasal Cannula 2.0 02/24/17 14:45 96 Nasal Cannula 2.0 02/24/17 14:45 36.6 96 16 115/66 (82) 95 Nasal Cannula 2.0 02/24/17 14:15 36.1 88 14 112/62 97 Nasal Cannula 2 02/24/17 14:05 86 13 111/71 97 Nasal Cannula 2 02/24/17 13:55 83 12 106/70 97 Oxymask 10 02/24/17 13:47 36.2 85 16 115/66 97 Oxymask 10 Laboratory Results 24 Hours: Test 02/25/17 06:26 Hematocrit 32.6 % Hemoglobin 10.8 g/dL Assessment & Plan Assessment: POD 1 - Right total knee arthroplasty Plan: Continue out of bed/physical therapy today. Able to weight-bear as tolerated right lower extremity with knee immobilizer on. Regular diet as ordered. H&H stable-we will continue to monitor. TEDs, foot pumps and Lovenox 30 mg twice a day for DVT prophylaxis x 28 days post op Use walker to assist with ambulation Plan for discharge to her home with home health on February 26 All questions answered today. Findings will be discussed with Dr. Rubin. Discharge Planning Discharge Planning: home with home health Pain Management: Percocet, Ultram DVT Prophylaxis: Lovenox (30 mg subcutaneously twice a day 28 days postop) Therapy: Physical Therapy
--- NOTE | 2017-02-25 09:45 | Discharge Instructions ---
Discharge Instructions Date of Service Feb 25, 2017. Admission Reason for Admission: Right Knee Degenerative Joint Disease Discharge Discharge Diagnosis / Problem: Right knee degenerative joint disease Discharge Goals Goal(s): Decrease discomfort, Improve function, Increase independence Activity Recommendations Activity Limitations: per Instructions/Follow-up section Weightbearing Status: Left weightbearing (as tolerated), Right weightbearing ( as tolerated) . Instructions / Follow-Up Instructions / Follow-Up Instructions / Follow-Up Instructions / Follow-Up New Medicine: * You will likely be taking one or more of these medications: 1. Lovenox - You will be on Lovenox for 28 days after surgery to prevent blood clots. Aspirin, 81 mg is OK To take while on Lovenox. We will ask you to obtain a CBC approximately one week after surgery. Please start Aspirin 325mg twice daily with food x 2 weeks or until seen by Dr. Rubin for your 6 week follow up. 2. Percocet - Take, as directed, when you need it, every four to six hours to control your pain. 3. Tramadol - Take, as directed, When you need it, every 4-6 hours to control your pain 4. Colace & Senokot - Take to prevent constipation which can be caused by narcotics. These can be bought [id number] at the pharmacy * The most common side effects of pain medicine and iron are nausea and constipation. If nausea or constipation is too much of a problem or if you have any questions about your new medicines or doses, call [facility] at . We will try to help you manage these issues. VERY IMPORTANT TO READ AND REVIEW" Blood Clots and Blood Thinning Medicine: * You are given Lovenox during the immediate post-operative period to lessen the risk of blood clots forming in your legs and/or lungs. Lovenox is usually given for 28 days after surgery. Physical Therapy: * Do your physical therapy at home. These are the exercises you learned while in the hospital (quad sets, leg raises, calf pumps, gluteal squeezes, knee bending, and heel props.) You should do these exercises 3-4 times per day. * You will either go to inpatient rehab ([facility]), home with Home Therapy and nursing or home with outpatient rehab. You should do rehab with the therapist 2-3 times per week. You should do therapy on your own daily. * You may bear full weight on your leg with crutches or walker unless otherwise advised. Home Exercise: * You were shown a series of exercises (heel props, heel slides, etc.) in the hospital. Do these exercises three to four times each day including the exercises you were shown in physical therapy. Walking: * You may be up for short periods of time. Standing and walking for 1-2 hours at a time is usually okay. You should not stand or walk for excessive periods of time as this may cause increased pain and swelling. SELF CARE INSTRUCTIONS AFTER TOTAL KNEE REPLACEMENT A. You may need to continue a physical therapy program after discharge from the hospital. There are several options available to you. Your doctor will assist you in selecting the best one for you. 1. An out-patient facility 2 to 3 times a week for therapy or home therapy. 2. Continue working on all exercises taught to you in the hospital. Your goals should be to increase bending of your knee to 90 degrees and beyond and to fully straighten your knee. B. Your therapist will notify you when you are able to progress from a walker to a cane. C. Wear TEDS as much as possible.~ They may be removed at night for laundering. D. Do not place a pillow behind your knee when resting. A pillow at your ankle is okay. E. Ice your knee 15-20 minutes every 2-3 hours and elevate it above the level of your heart. F. You may shower on the fourth day after surgery using regular soap and water. Do not submerge until the wound is completely healed (approximately 2 weeks ). Until the fourth day after surgery, cover the incision/bandage with a bag or plastic wrap. G. Anyone who is touching your surgical incision area should wash their hands and wear gloves. H. Keep your incision covered with gauze pads under the RAFAELA hose until it is dry. I. You will have a Silverlon dressing on her left knee incision. Keep this intact at all times. You may shower with the dressing on. It typically stays on for about 7 days. If it falls off and her incision is clean and dry you may cover with a gauze pad or keep open to air. VERY IMPORTANT TO READ AND REVIEW A. YOU WILL BE GIVEN AN ORDER AT DISCHARGE FOR PT/INR (BLOOD WORK). PLEASE HAVE THIS DONE INSTRUCTED. PLEASE CALL OUR OFFICE AFTER YOUR BLOODWORK IS COMPLETE SO WE CAN TRACK YOUR RESULTS. IF YOU ARE GOING TO OUTPATIENT PHYSICAL THERAPY, YOU WILL NEED TO GO TO OUTPATIENT TESTING TO HAVE IT DRAWN. B. There are a few signs you need to watch for after you are home. Call [facility] if you notice any of the followin. Increased severe knee pain. Some pain is expected especially when you exercise. 2. Increased swelling in your leg or knee; pain or swelling of the calf muscle in either lower leg. 3. Any fluid drainage from the incision. 4. Shortness of breath or chest pain. 5. Numbness and tingling in the surgical extremity C. Please call [facility] at if you have any concerns or questions about your operation or recovery. The doctor or his nurse will return your call promptly. D. Do not have any elective dental work or other elective procedures done for 6 weeks after your knee replacement. When you have any invasive procedure (dental cleaning, extraction, colonoscopy etc) performed, you will need to take antibiotics to prevent infection from developing in your artificial joint. Tell your other health care providers you have an artificial joint. My office will supply you with further information and the antibiotics. Call your doctor if: * Temperature above 101 degrees F. * Pain not relieved by pain medicine ordered. * Increased drainage or redness from incision. * Notify your doctor with any questions or concerns. Follow-up Visit: You will follow-up with Dr. Rubin 10-14 days after surgery. The office number is . * You have follow up scheduled with Dr. Rubin on March 09, 2017 at 12: 45 PM. Please call [phone] if you need to change the appointment. Current Hospital Diet Patient's current hospital diet: Regular Diet Discharge Diet Recommended Diet: Regular Diet Procedures Procedures Performed: Right total knee arthroplasty Pending Studies Studies pending at discharge: no Medical Emergencies . Who to Call and When: Medical Emergencies: If at any time you feel your situation is an emergency, please call 911 immediately. . Non-Emergent Contact Non-Emergency issues call your: Surgeon Call Non-Emergent contact if: temperature is above 101.5, your pain is not controlled, your pain is worsening, your pain is concerning you, wound has increased drainage, wound has increased redness, you have any medication questions . "Provider Documentation" section prepared by Verónica Valerio. . VTE Core Measure Inpt VTE Proph given/why not?: Enoxaparin (Lovenox)SQ (30 mg subcutaneous twice a day 28 days), T.E.D. Stockings, SCD's [place] Drug Monitoring Program Search Results: patient reviewed within database, no issues identified
[2017-02-25] MEDS ORDERED: MULT-890 PO (09:47)
[2017-02-25] MEDS ORDERED: CLC100 PO (09:47)
[2017-02-25] MEDS ORDERED: ACET-1047 PO (09:47)
[2017-02-25] MEDS: ONDANSETRON INJ 2 MG/ML 2 ML VIAL IV PRN (10:21)
[2017-02-25 11:39] VITALS: BP 118/70; PULSE 70; TEMP 36.9; O2SAT 95
[2017-02-25 15:27] VITALS: BP 123/65; PULSE 76; TEMP 36.9; O2SAT 93
[2017-02-25] MEDS: OXYCODONE HCL IR 5 MG TAB (IMMEDIATE RELEASE) PO PRN ×2 (16:26→21:23)
--- NOTE | 2017-02-25 18:39 | PROGRESS NOTE ---
DATE: 02/25/2017 Pain has been very well controlled. She has done well with PT. She is afebrile. Her vital signs are stable. Urine output is adequate. Labs are noted, white count 16, likely secondary to stress. Hematocrit is 33. PRP noted. She has normal distal neurovascular function strength, sensation and a 1+ dorsalis pedis pulse. Dressing is clean and dry. She will continue rehabilitation per protocol. We will consider discharge tomorrow if she continues to meet goals and expectations. I reviewed discharge instructions with her.
[2017-02-25] MEDS: ASPIRIN 81 MG ECTAB PO SCH (20:43)
[2017-02-25 23:10] VITALS: BP 93/55; PULSE 74; TEMP 36.8; O2SAT 95
[2017-02-26] MEDS: OXYCODONE HCL IR 5 MG TAB (IMMEDIATE RELEASE) PO PRN ×2 (04:13→08:07)
[2017-02-26 06:56] VITALS: BP 97/52; PULSE 77; TEMP 37; O2SAT 95
[2017-02-26] MEDS: ONDANSETRON INJ 2 MG/ML 2 ML VIAL IV PRN (07:13)
[2017-02-26] MEDS: PANTOprazole SOD 40 MG TAB PO SCH (07:15)
[2017-02-26] MEDS ORDERED: ULT50X PO (07:28)
[2017-02-26] MEDS ORDERED: ONDA4TAB10 SL (07:28)
[2017-02-26] MEDS ORDERED: LVNIS30 SQ (07:28)
[2017-02-26] MEDS ORDERED: OXYC-57 PO (07:28)
[2017-02-26 07:46] LABS: PARTIAL THROMBOPLASTIN RATIO 0.9
[2017-02-26] MEDS: FLUTICASONE/SALMETEROL 250/50 (ADVAIR) 14 PUFF/1 INHALER INH SCH (08:02)
[2017-02-26] MEDS: BuPROPion XL 300 MG TABCR PO SCH (08:03)
[2017-02-26] MEDS: MULTIVITAMIN TAB PO SCH (08:03)
[2017-02-26] MEDS: DOCUSATE SODIUM 100 MG CAP PO SCH (08:03)
[2017-02-26] MEDS: CALCIUM 600MG + VIT D 400 IU TAB PO SCH (08:04)
[2017-02-26] MEDS: ENOXAPARIN 30 MG/0.3 ML SYR SQ SCH (08:04)
--- NOTE | 2017-02-26 08:07 | Orthopedic Progress Note ---
Orthopedic Progress Note Date of Service Feb 26, 2017. Subjective Post OP Day: 2 Reports: feeling well, nausea / vomiting (mild), pain controlled w PO medications, Denies: complaints, chest pain, SOB, light headedness, calf pain Additional Notes: Mild increased pain in right knee today Objective calves soft nontender, N/V intact, capillary refill less than 2 sec., dressing C /D/I, incision C/D/I, A&O x3, toes mobile Silverlon applied to right knee, patient tolerated, distal pulses 1+, full ankle ROM, distal sensation normal Date Time Temp Pulse Resp B/P (MAP) Pulse Ox O2 Delivery O2 Flow Rate FiO2 02/26/17 06:56 37.0 77 16 97/52 (67) 95 Room Air 02/26/17 00:00 Room Air 02/25/17 23:10 36.8 74 16 93/55 (68) 95 Room Air 02/25/17 16:26 Room Air 02/25/17 15:27 36.9 76 16 123/65 (84) 93 Room Air 02/25/17 11:39 36.9 70 13 118/70 (86) 95 Room Air 02/25/17 08:59 94 Room Air Assessment & Plan Assessment: POD 2 - Right total knee arthroplasty Acute blood loss anemia Plan: Continue out of bed/physical therapy today. Able to weight-bear as tolerated right lower extremity with knee immobilizer on. Regular diet as ordered. H&H stable TEDs, foot pumps and Lovenox 30 mg twice a day for DVT prophylaxis x 28 days post op Use walker to assist with ambulation Plan for discharge to her home with in home PT on February 26 All questions answered today. Findings will be discussed with Dr. Rubin. Discharge Planning Discharge Planning: home with home health Pain Management: Percocet, Ultram DVT Prophylaxis: Lovenox (30 mg subcutaneously twice a day 28 days postop) Therapy: Physical Therapy
--- NOTE | 2017-02-26 08:49 | Discharge Summary ---
Discharge Summary Date of Service Feb 26, 2017. Discharge Summary Admission Date: Feb 24, 2017 at 10:00 Discharge Date: Feb 26, 2017 Discharge Disposition: Home Principal Diagnosis: Right knee degenerative joint disease Procedures: Right total knee arthroplasty Pending Studies/Follow-Up: You have a follow-up scheduled with Dr. Rubin on 03/09/2017. Please call your [phone] with any questions, concerns, or need to reschedule appointment. Medication Reconciliation New Medications: Ondasetron Odt (Zofran Odt) 4 Mg Tab 4 MG SL Q6H PRN for Nausea or Vomiting, #10 TAB Oxycodone/Acetaminophen 5MG/325MG (Percocet 5MG/325MG) Tab 1-2 TABLETS PO Q4H PRN for Pain, #30 TAB Acetaminophen (Mapap) 325 Mg Tab 650 MG PO Q6H PRN for PAIN/TEMP GREATER THAN 38 C, #30 TAB Docusate Sodium (Docusate Sodium) 100 Mg Cap 100 MG PO BID for 30 Days, #60 CAP Enoxaparin (Lovenox) 30 Mg/0.3 Ml Inj 30 MG SQ Q12H for 27 Days, #54 SYR 0 Refills Multiple Vitamin (Daily-Kayy) 1 Tab Tab 1 TAB PO QAM for 30 Days, #30 TAB Tramadol HCl (Tramadol HCl) 50 Mg Tab 50-100 MG PO Q4H PRN for Pain, #30 TAB 0 Refills Continued Medications: Albuterol Sulfate (Proair Respiclick) 108 Mcg/Act Aer 2 PUFF INH Q4 PRN for SOB/Wheezing Aspirin (Aspirin Ec) 81 Mg Tab 81 MG PO HS Bupropion Hcl (Wellbutrin Xl) 300 Mg Tab 1 TAB PO DAILY for 90 Days, #90 TAB 3 Refills Calcium/Vitamin D (Os-Ricardo 500 Plus D) Tab 1 TAB PO QAM, TAB Diphenhydramine Hcl (Benadryl Allergy) 25 Mg Tab 25 MG PO HS Fluticasone Prop/Salmeterol (Advair Diskus 250/50 60 Dose) 1 Ea Aerp 1 PUFF INH QAM, INHALER Pantoprazole (Protonix) 20 Mg Tab 20 MG PO QAM, #30 TAB Admission Information HPI (per Admitting provider): The patient is a 71-year-old female who Has been treated in our office for right knee pain. She has had bilateral knee pain for many years and recently underwent left total knee arthroplasty by Dr. Rubin in April 2016. She is doing well with that and would like to proceed with a right total knee arthroplasty. States that she has pain every day with her right knee. She has pain with activities of daily living and weightbearing and range of motion. It affects everything that she does. She does have night pain and rest pain as well. She has failed conservative treatment which has included physical therapy , corticosteroid injections, viscous supplementation. Aggravating activities include walking, going up and down steps, and sitting in one place for too long. Everything that she has tried is not provided long-term relief and with her doing so well after her left knee replacement she would like to proceed with the right in hopes that she is able to improve her [id number]. X- rays that have been taken in our office show end-stage degenerative joint disease of her right knee and surgical intervention was recommended. She has agreed to proceed. Physical Exam (per Admitting): General Appearance: WD/WN, no apparent distress Head: normocephalic, atraumatic Eyes: normal inspection, PERRL, EOMI, sclerae normal ENT: normal ENT inspection, hearing grossly normal, TMs normal, pharynx normal Neck: supple, no carotid bruits, trachea midline Respiratory/Chest: chest non-tender, lungs clear, normal breath sounds, no respiratory distress, no accessory muscle use Cardiovascular: regular rate, rhythm, no edema, no murmur, normal peripheral pulses Abdomen/GI: normal bowel sounds, non tender, soft Extremities/Musculoskelatal: no calf tenderness, normal capillary refill, no pedal edema, + pertinent finding (Exam of her right knee shows range of motion 0/15/120. Passive straight leg raising is negative. Tay's test is negative. She has full range of motion of her right hip. There is trace MCL laxity and mild varus alignment, 5/5 strength with 1+ posterior tibial and dorsalis pedis pulses. Tenderness medial joint line. Popliteal angle is 150. Decreased patellar mobility.) Neurologic/Psych: no motor/sensory deficits, alert, normal mood/affect, normal reflexes, oriented x 3 Skin: normal color, warm/dry, no rash Hospital Course Patient was admitted to [facility] after undergoing an elective right total knee arthroplasty on 02/24/[address] Rubin. Her surgery was done with spinal anesthetic and peripheral nerve block. She tolerated the procedure well without any intraoperative complications. She was given 2 g of IV Ancef for surgical prophylaxis. Her Ancef was continued for 24 hours postoperative. Postoperative x-rays were obtained in the PACU and showed a stable prosthesis of her right knee. She was allowed out of bed, weightbearing as tolerated right lower extremity with knee immobilizer in the assistance of a walker. RAFAELA stockings, and foot pumps and Lovenox 30 mg twice a day was ordered for DVT prophylaxis. Oral and IV pain medication was prescribed. Regular diet was ordered which she tolerated well during the hospital stay. Dressings were changed on postoperative day 2 and her incision was clean dry and intact. Silverlon dressing was applied on postoperative day 2. She did develop some mild nausea on postoperative day 2 which was relieved with Zofran. She was seen and evaluated by physical therapy and participated well with them. Her pain was well controlled during her hospital stay on oral pain medications. She did develop acute blood loss anemia but no blood transfusions were necessary during her stay. She was seen and evaluated by social contact worker and case management and was set up for discharge to home with the therapist coming to her house. On postoperative day 2 she was stable for discharge and was discharged to her home in stable condition on 02/26/2017. Discharge instructions were reviewed and provided. She was discharged home on Zofran, Lovenox, Percocet, and tramadol. Total time spent on discharge = This includes examination of the patient, discharge planning, medication reconciliation, and communication with other providers. Discharge Instructions Discharge Instructions Date of Service Feb 25, 2017. Admission Reason for Admission: Right Knee Degenerative Joint Disease Discharge Discharge Diagnosis / Problem: Right knee degenerative joint disease Discharge Goals Goal(s): Decrease discomfort, Improve function, Increase independence Activity Recommendations Activity Limitations: per Instructions/Follow-up section Weightbearing Status: Left weightbearing (as tolerated), Right weightbearing ( as tolerated) . Instructions / Follow-Up Instructions / Follow-Up Instructions / Follow-Up Instructions / Follow-Up New Medicine: * You will likely be taking one or more of these medications: 1. Lovenox - You will be on Lovenox for 28 days after surgery to prevent blood clots. Aspirin, 81 mg is OK To take while on Lovenox. We will ask you to obtain a CBC approximately one week after surgery. Please start Aspirin 325mg twice daily with food x 2 weeks or until seen by Dr. Rubin for your 6 week follow up. 2. Percocet - Take, as directed, when you need it, every four to six hours to control your pain. 3. Tramadol - Take, as directed, When you need it, every 4-6 hours to control your pain 4. Colace & Senokot - Take to prevent constipation which can be caused by narcotics. These can be bought [id number] at the pharmacy * The most common side effects of pain medicine and iron are nausea and constipation. If nausea or constipation is too much of a problem or if you have any questions about your new medicines or doses, call [facility] at . We will try to help you manage these issues. VERY IMPORTANT TO READ AND REVIEW" Blood Clots and Blood Thinning Medicine: * You are given Lovenox during the immediate post-operative period to lessen the risk of blood clots forming in your legs and/or lungs. Lovenox is usually given for 28 days after surgery. Physical Therapy: * Do your physical therapy at home. These are the exercises you learned while in the hospital (quad sets, leg raises, calf pumps, gluteal squeezes, knee bending, and heel props.) You should do these exercises 3-4 times per day. * You will either go to inpatient rehab (Critical access hospital), home with Home Therapy and nursing or home with outpatient rehab. You should do rehab with the therapist 2-3 times per week. You should do therapy on your own daily. * You may bear full weight on your leg with crutches or walker unless otherwise advised. Home Exercise: * You were shown a series of exercises (heel props, heel slides, etc.) in the hospital. Do these exercises three to four times each day including the exercises you were shown in physical therapy. Walking: * You may be up for short periods of time. Standing and walking for 1-2 hours at a time is usually okay. You should not stand or walk for excessive periods of time as this may cause increased pain and swelling. SELF CARE INSTRUCTIONS AFTER TOTAL KNEE REPLACEMENT A. You may need to continue a physical therapy program after discharge from the hospital. There are several options available to you. Your doctor will assist you in selecting the best one for you. 1. An out-patient facility 2 to 3 times a week for therapy or home therapy. 2. Continue working on all exercises taught to you in the hospital. Your goals should be to increase bending of your knee to 90 degrees and beyond and to fully straighten your knee. B. Your therapist will notify you when you are able to progress from a walker to a cane. C. Wear TEDS as much as possible.~ They may be removed at night for laundering. D. Do not place a pillow behind your knee when resting. A pillow at your ankle is okay. E. Ice your knee 15-20 minutes every 2-3 hours and elevate it above the level of your heart. F. You may shower on the fourth day after surgery using regular soap and water. Do not submerge until the wound is completely healed (approximately 2 weeks ). Until the fourth day after surgery, cover the incision/bandage with a bag or plastic wrap. G. Anyone who is touching your surgical incision area should wash their hands and wear gloves. H. Keep your incision covered with gauze pads under the RAFAELA hose until it is dry. I. You will have a Silverlon dressing on her left knee incision. Keep this intact at all times. You may shower with the dressing on. It typically stays on for about 7 days. If it falls off and her incision is clean and dry you may cover with a gauze pad or keep open to air. VERY IMPORTANT TO READ AND REVIEW A. YOU WILL BE GIVEN AN ORDER AT DISCHARGE FOR PT/INR (BLOOD WORK). PLEASE HAVE THIS DONE INSTRUCTED. PLEASE CALL OUR OFFICE AFTER YOUR BLOODWORK IS COMPLETE SO WE CAN TRACK YOUR RESULTS. IF YOU ARE GOING TO OUTPATIENT PHYSICAL THERAPY, YOU WILL NEED TO GO TO OUTPATIENT TESTING TO HAVE IT DRAWN. B. There are a few signs you need to watch for after you are home. Call [facility] if you notice any of the followin. Increased severe knee pain. Some pain is expected especially when you exercise. 2. Increased swelling in your leg or knee; pain or swelling of the calf muscle in either lower leg. 3. Any fluid drainage from the incision. 4. Shortness of breath or chest pain. 5. Numbness and tingling in the surgical extremity C. Please call [facility] at if you have any concerns or questions about your operation or recovery. The doctor or his nurse will return your call promptly. D. Do not have any elective dental work or other elective procedures done for 6 weeks after your knee replacement. When you have any invasive procedure (dental cleaning, extraction, colonoscopy etc) performed, you will need to take antibiotics to prevent infection from developing in your artificial joint. Tell your other health care providers you have an artificial joint. My office will supply you with further information and the antibiotics. Call your doctor if: * Temperature above 101 degrees F. * Pain not relieved by pain medicine ordered. * Increased drainage or redness from incision. * Notify your doctor with any questions or concerns. Follow-up Visit: You will follow-up with Dr. Rubin 10-14 days after surgery. The office number is . * You have follow up scheduled with Dr. Rubin on March 09, 2017 at 12: 45 PM. Please call [phone] if you need to change the appointment. Current Hospital Diet Patient's current hospital diet: Regular Diet Discharge Diet Recommended Diet: Regular Diet Procedures Procedures Performed: Right total knee arthroplasty Pending Studies Studies pending at discharge: no Medical Emergencies . Who to Call and When: Medical Emergencies: If at any time you feel your situation is an emergency, please call 911 immediately. . Non-Emergent Contact Non-Emergency issues call your: Surgeon Call Non-Emergent contact if: temperature is above 101.5, your pain is not controlled, your pain is worsening, your pain is concerning you, wound has increased drainage, wound has increased redness, you have any medication questions . "Provider Documentation" section prepared by Verónica Valerio. . VTE Core Measure Inpt VTE Proph given/why not?: Enoxaparin (Lovenox)SQ (30 mg subcutaneous twice a day 28 days), T.Cleve Good SCD's [place] Drug Monitoring Program Search Results: patient reviewed within database, no issues identified
[2017-02-26 11:42] VITALS: BP 97/52; PULSE 77; TEMP 37; O2SAT 95
[2017-02-26] MEDS: TRAMADOL HCL 50 MG TAB PO PRN (11:49)
[2017-02-26 12:12] VITALS: BP 116/67; PULSE 70
== END 2017-02-26 12:18 | disposition home or self-care (01) | DRG 983 ==
LOC: C.ACU 07:14 → C.3E 10:00 → ENRESERV 14:07
PROVIDERS: ADMIT Physical Medicine & Rehabilitation Sports Medicine; ATTEND Physical Medicine & Rehabilitation Sports Medicine
PROC: 0SRC0J9 Replacement of Right Knee Joint with Synthetic Substitute, Cemented, Open Approach (ICD-10-PCS; principal; 2017-02-24 09:45)
DX: D62 Acute posthemorrhagic anemia (principal); J45.909 Unspecified asthma, uncomplicated; K21.9 Gastro-esophageal reflux disease without esophagitis; M85.80 Other specified disorders of bone density and structure, unspecified site; F41.9 Anxiety disorder, unspecified; F32.9 Major depressive disorder, single episode, unspecified; Z96.652 Presence of left artificial knee joint; Z87.891 Personal history of nicotine dependence; Z79.82 Long term (current) use of aspirin; Z79.51 Long term (current) use of inhaled steroids; Z79.899 Other long term (current) drug therapy

== ENCOUNTER → 2017-03-02 | Outpatient (CLI) | payer BC, OTHER ==
[~2017-03-02] MED LIST changes: +ACET-1047 PO; -ACETAMINOPHEN 500 MG TAB PO SCH; -BUPIVACAINE 0.25% 30 ML VIAL ONE; -BUPIVACAINE 0.5 % 5 MG/1 ML PF 10ML VIAL ONE; -CEFAZOLIN 2000MG IV PUSH 10 ML IV SCH; +CLC100 PO; -CLONIDINE HCL 0.1 MG/24 HR TRANSDERM SYS TD SCH; -CeleBREX 200 MG CAP PO SCH; -DEXAMETHASONE 4 MG TAB PO SCH; -DEXAMETHASONE SOD INJ 4 MG/ML VIAL ONE; -EpINEphrine INJ 1MG/ML AMP 1 MG/ML AMP ONE; -FAMOTIDINE 20 MG TAB PO SCH; -GABAPENTIN 300 MG CAP PO SCH; -LACTATED RINGER'S 1000ML 1,000 ML IV SCH; -LACTATED RINGER'S 1000ML IV SCH; +LVNIS30 SQ; -METOCLOPRAMIDE HCL 10 MG TAB PO SCH; +MULT-890 PO; +ONDA4TAB10 SL; +OXYC-57 PO; -OXYCODONE HCL 10 MG TABCR (OXYCONTIN) PO SCH; -ROPIVACAINE 5MG/ML 30 ML 150 MG, BUPIVACAINE/EPINEPHR 0.5% MPF 30 ML, KETOROLAC TROMETH... INFIL SCH; -TRAMADOL HCL 50 MG TAB PO SCH; +ULT50X PO
[2017-03-02 17:37] LABS: HEMATOCRIT 34.3 % (37-47); MEAN CELL VOLUME 90.5 fL (80-100); MEAN CORPUSCULAR HEMOGLOBIN 30.1 pg (25-34); MEAN CORPUSCULAR HGB CONC 33.2 g/dl (32-36); MEAN PLATELET VOLUME 10.1 fL (7.4-10.4); PLATELET COUNT 439 K/uL (130-400); RED BLOOD COUNT 3.79 M/uL (4.2-5.4); WHITE BLOOD COUNT 9.93 K/uL (4.8-10.8)
== END | disposition home or self-care (01) ==
LOC: C.LABBFT 15:10
PROVIDERS: ATTEND Physical Medicine & Rehabilitation Sports Medicine
DX: Z96.651 Presence of right artificial knee joint (principal); D62 Acute posthemorrhagic anemia; Z79.01 Long term (current) use of anticoagulants

== ENCOUNTER → 2017-03-14 | Outpatient (CLI) | payer BC ==
[2017-03-14 13:00] LABS: MEAN CELL VOLUME 91.6 fL (80-100); MEAN CORPUSCULAR HEMOGLOBIN 30.6 pg (25-34); MEAN CORPUSCULAR HGB CONC 33.4 g/dl (32-36); MEAN PLATELET VOLUME 9.2 fL (7.4-10.4); PLATELET COUNT 590 K/uL (130-400); RED BLOOD COUNT 4.15 M/uL (4.2-5.4); WHITE BLOOD COUNT 8.16 K/uL (4.8-10.8)
== END | disposition home or self-care (01) ==
LOC: C.LABBC 10:18
PROVIDERS: ATTEND Physical Medicine & Rehabilitation Sports Medicine
DX: M17.11 Unilateral primary osteoarthritis, right knee (principal); Z96.659 Presence of unspecified artificial knee joint

== ENCOUNTER → 2017-05-13 | Outpatient (CLI) | payer BC | END | disposition home or self-care (01) | LOC: C.RDSM 14:45 | PROVIDERS: ATTEND Physical Medicine & Rehabilitation Sports Medicine | DX: Z96.652 Presence of left artificial knee joint (principal); Z96.651 Presence of right artificial knee joint; M25.561 Pain in right knee; M25.562 Pain in left knee ==